=== PATIENT | female | born 1960 | race Caucasian/White ===

== ENCOUNTER → 2017-01-20 | Outpatient (CLI) | payer SELFPAY ==
--- NOTE | 2017-01-20 15:30 | US ---
EXAMINATION TYPE: US thyroid st tissue head/neck DATE OF EXAM: 01/20/2017 COMPARISON: NONE CLINICAL HISTORY: 56-year-old female E04.9 Nontoxic Goiter. TECHNIQUE: Multiple sonographic images of the thyroid gland are obtained. FINDINGS: GLAND SIZE: Right Lobe: 3.4 x 0.9 x 1.5 cm Overall Parenchyma: heterogenous Left Lobe: 3.5 x 1.1 x 0.8 cm Overall Parenchyma: heterogeneous Isthmus Thickness: 0.2 cm NODULES RIGHT: # of nodules measured on right: 1 1. 0.9 X 0.4 x 0.7 cm isoechoic solid nodule at the upper pole with well-defined margins. This nod ule is taller than wide and shows no intranodular vascularity. Prior: 9 x 5 x 9 mm LEFT: # of nodules measured on left: 0 ISTHMUS: # of nodules measured in the isthmus: 0 Bilateral neck scanned, no evidence of lymphadenopathy. IMPRESSION: Stable 9 mm solid right thyroid lobe nodule.
== END | disposition home or self-care (01) ==
LOC: RADUSWWP 12:58
PROVIDERS: ATTEND Family Medicine
DX: E04.1 Nontoxic single thyroid nodule (principal)
CPT/HCPCS: 76536

== ENCOUNTER → 2017-07-30 | Outpatient (CLI) | payer BC ==
--- NOTE | 2017-07-30 16:15 | US ---
EXAMINATION TYPE: US thyroid st tissue head/neck DATE OF EXAM: 07/30/2017 COMPARISON: 01/20/2017 CLINICAL HISTORY: 56-year-old female E04.9 nontoxic goiter, unspec. Technique: Multiple sonographic images of the thyroid gland are obtained. FINDINGS: Right Lobe: 3.5 x 0.9 x 0.9 cm Overall Parenchyma: heterogenous Left Lobe: 3.1 x 0.7 x 1.0 cm Overall Parenchyma: heterogeneous Isthmus Thickness: 0.2 cm NODULES RIGHT: # of nodules measured on right: 1 1. 1.3 X 0.5 x 0.8 cm isoechoic solid nodule at the lower pole with well-defined margins; . This n odule is wider than tall and shows no intranodular vascularity. Prior size: 0.9 x 0.4 x 0.7 cm LEFT: # of nodules measured on left: 0 ISTHMUS: # of nodules measured in the isthmus: 0 Bilateral neck scanned. Lymph node noted right lateral neck measures 2.9 cm long axis. One of the short axis measurement is 7 mm. The cuff folder does not provide a transverse view of this lymph node. IMPRESSION: 1. Heterogeneous thyroid gland could reflect goiter, diffuse thyroiditis, or chronic hypothyroidism. 2. A single solid nodule in the right mid pole measures 1.3 x 0.8 cm versus 0.9 x 0.7 cm, previously. Decision to biopsy can be made on a clinical basis. 3. A prominent lymph node along the right lateral neck is measured at 2.9 cm long axis. The sonograph er does not provide a transverse view of the lymph node. One of the short axis measurement is 7 mm wh ich is normal. This can be followed clinically and if any enlargement is noted, the area can be reima ged.
== END | disposition home or self-care (01) ==
LOC: RADUSWWP 15:25
PROVIDERS: ATTEND Family Medicine
DX: E04.1 Nontoxic single thyroid nodule (principal)
CPT/HCPCS: 76536

== ENCOUNTER → 2017-08-24 | Outpatient (CLI) | payer BC ==
--- NOTE | 2017-08-24 22:44 | BD ---
EXAMINATION TYPE: MG DEXA axial skeleton. DATE OF EXAM: 08/24/2017 COMPARISON: NONE CLINICAL HISTORY: 56-year-old female postmenopausal screening Height: 67.5 IN Weight: 225 LBS FRAX RISK QUESTIONS: Alcohol (3 or more units per day): NO Family History (Parent hip fracture): NO Glucocorticoids (More than 3mos): NO (Ex: prednisone, prednisolone, methylprednisolone, dexamethasone, and hydrocortisone). History of Fracture in Adulthood: NO Secondary Osteoporosis: 1. Type 1 Diabetes: NO 2. Hyperthyroidism: NO 3. Menopause before 45: NO 4. Malnutrition: NO 5. Chronic liver disease: NO Rheumatoid Arthritis: NO Current Tobacco Use: NO RISK FACTORS HISTORY OF: Family History of Osteoporosis: YES MOTHER Active: YES Diet low in dairy products/other sources of calcium: YES Postmenopausal woman: AGE 50 Take estrogen and/or progesterone medications: NOT NOW How long: AGE 52 - 56 Frequent falls: YES CLUMSINESS MEDICATIONS: Thyroid Medications: YES Which medication: Levothyroxine How Lon + YEARS Additional Medications: VIT D, LEVOTHYROXINE, CHOLESTEROL MEDS, COQ10, FISH OIL, EXAM MEASUREMENTS: Bone mineral densitometry was performed using the [employer] System. Bone mineral density as measured about the Lumbar spine is: ----- L1-L4(G/cm2): 1.226 T Score Values are as follows: ----- L2: -0.2 ----- L3: 0.9 ----- L4: 1.5 ----- L1-L4: 0.4 Bone mineral density BASELINE Bone mineral density about the R hip (g/cm2): 0.932 Bone mineral density about the L hip (g/cm2): 0.952 T Score values are as follows: -----R Neck: -0.8 -----L Neck: -0.6 -----R Total: -0.3 -----L Total: -0.3 Bone mineral density BASELINE IMPRESSION: Normal (Values between +1 and -1 indicate normal bone mass). Consider repeating this study in 5 year s or sooner if there is some new clinical indication. NOTE: T-SCORE=SD OF THE YOUNG ADULT MEAN.
--- NOTE | 2017-08-25 13:35 | MM ---
Reason for exam: screening (asymptomatic). Last mammogram was performed 3 years and 2 months ago. History: Patient is postmenopausal. Physical Findings: A clinical breast exam by your physician is recommended on an annual basis and results should be correlated with mammographic findings. MG 3D Screening Mammo W/Cad Bilateral CC and MLO view(s) were taken. Prior study comparison: July 03, 2014, bilateral MG screening mammo w CAD. April 03, 2004, bilateral screening mammogram. The breast tissue is heterogeneously dense. This may lower the sensitivity of mammography. Nodular asymmetry lateral left breast incompletely disperses on 3D images. ASSESSMENT: Incomplete: need additional imaging evaluation, BI-RAD 0 RECOMMENDATION: Special view mammogram of the left breast. If lesion persists on supplemental views, image directed ultrasound is recommended. [facility] will attempt to contact patient to return for supplemental views and ultrasound if indicated.
== END | disposition home or self-care (01) ==
LOC: RADMAMWWP 13:51
PROVIDERS: ATTEND Obstetrics & Gynecology
DX: Z12.31 Encounter for screening mammogram for malignant neoplasm of breast (principal); N95.1 Menopausal and female climacteric states
CPT/HCPCS: 77063; 77067; 77080

== ENCOUNTER → 2017-08-26 | Outpatient (CLI) | payer BC ==
--- NOTE | 2017-08-26 10:22 | MM ---
Reason for exam: additional evaluation requested from abnormal screening. Last mammogram was performed less than 1 month ago. History: Patient is postmenopausal. Physical Findings: Nurse did not find any significant physical abnormalities on exam. MG 3D Work Up W/Cad LT Spot compression CC, spot compression MLO, and ML view(s) were taken of the left breast. Prior study comparison: August 24, 2017, bilateral MG 3d screening mammo w/cad. July 03, 2014, bilateral MG screening mammo w CAD. The breast tissue is heterogeneously dense. This may lower the sensitivity of mammography. No suspicious nodule on compression. These results were verbally communicated with the patient and result sheet given to the patient on 08/26/17. ASSESSMENT: Probably benign, BI-RAD 3 RECOMMENDATION: Follow-up diagnostic mammogram of the left breast in 6 months.
== END | disposition home or self-care (01) ==
LOC: RADMAMWWP 09:32
PROVIDERS: ATTEND Obstetrics & Gynecology
DX: R92.8 Other abnormal and inconclusive findings on diagnostic imaging of breast (principal)
CPT/HCPCS: 77065; G0279

== ENCOUNTER → 2017-08-30 | Outpatient (CLI) | payer BC ==
--- NOTE | 2017-08-30 14:41 | CT ---
EXAMINATION TYPE: CT soft tissue neck w con DATE OF EXAM: 08/30/2017 2:06 PM COMPARISON: Ultrasound 07/30/1999 HISTORY: difficulty swallowing, feels like there is a lump in throat CT DLP: 427.9 mGycm Automated exposure control for dose reduction was used. CONTRAST: CT scan of the neck is performed following with IV Contrast, patient injected with 100 mL of Omnipaqu e 300. Axial images are obtained, coronal and sagittal reformatted images are reviewed. FINDINGS: Airway: No gross abnormality seen. Parotid/submandibular glands: No gross abnormality seen. Carotid/Vascular Structures: Patent, right vertebral artery is dominant, 4 super aortic branch vessel s present. Osseous Structures: Degenerative disc changes are present, there is multilevel foraminal encroachment . Other: Thyroid appears atrophic. Normal appearing lymph nodes present. IMPRESSION: No significant abnormalities evident.
== END | disposition home or self-care (01) ==
LOC: RADCTMAIN 12:55
PROVIDERS: ATTEND Otolaryngology
DX: R22.1 Localized swelling, mass and lump, neck (principal)
CPT/HCPCS: 70491; Q9967

== ENCOUNTER → 2017-10-12 | Outpatient (CLI) | payer BC ==
--- NOTE | 2017-10-12 14:15 | US ---
EXAMINATION TYPE: US thyroid st tissue head/neck DATE OF EXAM: 10/12/2017 COMPARISON: Prior thyroid ultrasound July 30, 2017 CLINICAL HISTORY: E04.1 Nontoxic single thyroid nodule. GLAND SIZE: Right Lobe: 3.3 x 0.9 x 0.8 cm Overall Parenchyma: heterogenous Left Lobe: 2.9 x 0.7 x 0.8 cm Overall Parenchyma: heterogeneous Isthmus Thickness: 0.3 cm NODULES RIGHT: # of nodules measured on right: 1 1. 1.3 X 0.5 x 1.0 cm isoechoic nodule at the lower pole with well-defined margins; . This nodule is wider than tall and shows intranodular vascularity. Prior size: 1.3 x 0.5 x 0.8 cm LEFT: # of nodules measured on left: 0 ISTHMUS: # of nodules measured in the isthmus: 0 Bilateral neck scanned, no evidence of lymphadenopathy. There is stable poorly defined isoechoic right-sided thyroid nodule in small size thyroid. No new nod ules are seen on images saved. IMPRESSION: Overall stable findings. No new suspicious nodules are seen.
== END | disposition home or self-care (01) ==
LOC: RADUSWWP 13:38
PROVIDERS: ATTEND Family Medicine
DX: E04.1 Nontoxic single thyroid nodule (principal)
CPT/HCPCS: 76536

== ENCOUNTER → 2018-11-22 | Outpatient (CLI) | payer BC ==
--- NOTE | 2018-11-22 13:23 | US ---
EXAMINATION TYPE: US thyroid st tissue head/neck DATE OF EXAM: 11/22/2018 COMPARISON: Prior thyroid ultrasound 07/03/2017 CLINICAL HISTORY: E04.1 Thyroid nodule. follow up exam, patient has been on generic synthroid 137mg f or over 20 years GLAND SIZE: Right Lobe: 3.7 x 1.0 x 0.8 cm Overall Parenchyma: heterogenous Left Lobe: 2.8 x 0.6 x 0.6 cm Overall Parenchyma: heterogeneous Isthmus Thickness: 1.4 cm NODULES RIGHT: # of nodules measured on right: 0 LEFT: # of nodules measured on left: 0 ISTHMUS: # of nodules measured in the isthmus: 1 1. 1.2 X 0.5 x 0.9 cm isoechoic solid nodule at the right side of isthmus with poorly defined thomas ns. This nodule is wider than tall and shows intranodular vascularity. Prior size: 1.3 x 0.5 x 1.0 cm Bilateral neck scanned, no evidence of lymphadenopathy. Persistent heterogeneous small size thyroid with stable nodule in the isthmus right of midline. IMPRESSION: As above, no significant interval change from most recent prior ultrasound.
== END | disposition home or self-care (01) ==
LOC: RADUSWWP 12:30
PROVIDERS: ATTEND Internal Medicine
DX: E04.1 Nontoxic single thyroid nodule (principal)
CPT/HCPCS: 76536

== ENCOUNTER → 2019-02-21 | Outpatient (CLI) | payer BC ==
--- NOTE | 2019-02-21 13:43 | CT ---
EXAMINATION TYPE: CT sinus wo con DATE OF EXAM: 02/21/2019 COMPARISON: NONE HISTORY: Sinus drainage, inability to breath through right nostril per patient. Chronic sinusitis per order. CT DLP: 669.3 mGycm. Automated Exposure Control for Dose Reduction was Utilized. TECHNIQUE: CT scan of the sinuses is performed without contrast, axial images are obtained, coronal r eformatted images are also reviewed. FINDINGS: The paranasal sinuses including the frontal, ethmoid, sphenoid, and maxillary sinuses bila terally are well-aerated without suspicious opacification or air-fluid levels. Mild to minimal antral mucosal thickening is present bilaterally. The ostiomeatal complex is patent bilaterally on the lewis nal images. Nasal septum is slightly deviated to right of midline. Visualized portion of mastoid air cells show no abnormal opacification. The globes are intact bilate rally. IMPRESSION: No acute sinusitis. Patent bilateral ostiomeatal complexes.
== END | disposition home or self-care (01) ==
LOC: RADCTMAIN 13:05
PROVIDERS: ATTEND Otolaryngology
DX: J32.9 Chronic sinusitis, unspecified (principal)
CPT/HCPCS: 70486

== ENCOUNTER → 2019-04-19 | Outpatient (CLI) | payer BC ==
--- NOTE | 2019-04-19 10:00 | MM ---
Reason for exam: additional evaluation requested from prior study. Last mammogram was performed 1 year and 8 months ago. History: Patient is postmenopausal. Physical Findings: Nurse did not find any significant physical abnormalities on exam. MG 3D Diag Mammo W/Cad NATHALIE Bilateral CC and MLO view(s) were taken. Prior study comparison: August 26, 2017, left breast MG 3d work up w/cad LT. August 24, 2017, bilateral MG 3d screening mammo w/cad. The breast tissue is heterogeneously dense. This may lower the sensitivity of mammography. Benign appearing bilateral calcifications. No suspicious abnormality. No significant new findings when compared with previous films. These results were verbally communicated with the patient and result sheet given to the patient on 04/19/19. ASSESSMENT: Benign, BI-RAD 2 RECOMMENDATION: Routine screening mammogram of both breasts in 1 year.
== END | disposition home or self-care (01) ==
LOC: RADMAMWWP 06:50
PROVIDERS: ATTEND Obstetrics & Gynecology
DX: R92.8 Other abnormal and inconclusive findings on diagnostic imaging of breast (principal)
CPT/HCPCS: 77062; 77066

== ENCOUNTER → 2019-12-27 | Outpatient (CLI) | payer BC ==
--- NOTE | 2019-12-27 13:46 | US ---
EXAMINATION TYPE: US thyroid st tissue head/neck DATE OF EXAM: 12/27/2019 COMPARISON: NONE CLINICAL HISTORY: E04.1 Thyroid nodule. Thyroid nodule GLAND SIZE: Right Lobe: 2.7 x .8 x 1.0 cm Overall Parenchyma: homogenous Left Lobe: 2.9 x .5 x .9 cm Overall Parenchyma: homogeneous Isthmus Thickness: .3 cm NODULES RIGHT: # of nodules measured on right: 0 LEFT: # of nodules measured on left: 0 ISTHMUS: # of nodules measured in the isthmus: 1 1. .8 X .3 x .7 cm isoechoic solid nodule at the mid pole with poorly defined margins; . This nod ule is wider than tall and shows intranodular vascularity. Prior size: 1.3 x .5 x 1.0 cm Bilateral neck scanned, no evidence of lymphadenopathy. IMPRESSION: Improved thyroid nodularity about the region of the isthmus. Diminutive thyroid lobes.
== END | disposition home or self-care (01) ==
LOC: RADUSWWP 12:53
PROVIDERS: ATTEND Internal Medicine
DX: E04.1 Nontoxic single thyroid nodule (principal); E06.3 Autoimmune thyroiditis
CPT/HCPCS: 76536

== ENCOUNTER → 2020-04-18 | Outpatient (CLI) | payer BC ==
--- NOTE | 2020-04-18 16:50 | CONS ---
CONSULTATION DATE OF SERVICE: 04/18/2020 This patient is a 59-year-old lady who has [facility] for insomnia and possible obstructive sleep apnea-hypopnea syndrome. HISTORY OF PRESENT ILLNESS/SLEEP-WAKE EVALUATION: Patient's usual sleep schedule is from between 11 p.m. and 4 a.m. until between 7 and 10 a.m. She does have problems with falling asleep. She has a TV set in the bedroom. She sleeps on the stomach position. During sleep she moves, and when she is on her back she snores and wakes up from sleep several times, with up to two episodes of nocturia. Sometimes she has restless movements during sleep, but this is not every night. In the morning the patient wakes up tired, worries about her sleep, has episodes of anxiety. [place] Sleepiness Scale is 5. PAST MEDICAL HISTORY: Positive for allergies, hypothyroidism, episodes of muscle cramps also during the night, acid reflux, sinus problems. MEDICATIONS: Levothyroxine 137 mcg once a day. SOCIAL HISTORY: Negative for smoking. Alcohol consumption occasional. FAMILY HISTORY: Stroke, diabetes, mental illness. REVIEW OF SYSTEMS: Awakenings from sleep, tiredness and sleepiness during the day, difficulties initiating sleep. PHYSICAL EXAMINATION: GENERAL: A pleasant lady without distress. VITAL SIGNS: BP 158/87, HR 92, RR 15, height 5 feet 7-1/2 inches, weight 234.8 pounds, BMI 36.1, temperature 98.3, oxygen saturation at room air 97%. HEENT: PERRLA, EOMI. Evaluation of oropharynx showed tongue protrudes midline. Low position of soft palate. Mallampati III to IV. NECK: Supple. No JVD. Thyroid is not palpable. Neck measures 16 inches in circumference. LUNGS: Clear to percussion and to auscultation. Good air exchange. No wheezing or rhonchi. HEART: S1, S2 regular. No murmurs, gallops or rubs. ABDOMEN: Obese. EXTREMITIES: No clubbing or cyanosis. DIGITAL PUBLISHING SPECIALIST: Awake, alert, and oriented X3. Cranial nerves 2 to 7 intact. There is no fasciculation or atrophy. noted. No focal deficits observed. IMPRESSION: 1. Snoring, awakenings from sleep with nocturia, small oropharyngeal air space, wide neck for female at 16 inches; obstructive sleep apnea-hypopnea syndrome. 2. Increased blood pressure in the office today. 3. Hypothyroidism. 4. Allergies. 5. Sinus problems. 6. History of acid reflux. 7. Episodes of muscle cramps at night. 8. Episodes of restless leg symptoms. 9. History of sinus problems. 10.Psychophysiological insomnia. 11.Menopause. PLAN: 1. Home sleep apnea test for evaluation of patient's breathing during sleep. 2. I discussed with the patient stimulus control and paradoxical intention for treatment of psychophysiological insomnia. 3. Losing weight. 4. Sleep hygiene with regular time in bed for at least 7-1/2 to 8 hours. 5. No driving if feeling any sleepiness. 6. Following plan after reviewing results of home sleep apnea test. Thank you very much for referring this patient for consultation. Sincerely, Jacob Paniagua MD, PhD, FAASM Diplomat of [place] [employer] [place] [employer] Professor Of Public Administration of [facility] [place] MMODL / IJN: [id number] /
== END | disposition home or self-care (01) ==
LOC: SLEEP 14:49
PROVIDERS: ATTEND Internal Medicine
DX: G47.33 Obstructive sleep apnea (adult) (pediatric) (principal); E03.9 Hypothyroidism, unspecified; R03.0 Elevated blood-pressure reading, without diagnosis of hypertension; J34.9 Unspecified disorder of nose and nasal sinuses; R25.2 Cramp and spasm; G25.81 Restless legs syndrome; F51.04 Psychophysiologic insomnia; Z78.0 Asymptomatic menopausal state; Z79.891 Long term (current) use of opiate analgesic; Z87.19 Personal history of other diseases of the digestive system
CPT/HCPCS: 99211

== ENCOUNTER → 2020-08-29 | Outpatient (CLI) | payer BC ==
--- NOTE | 2020-09-02 11:41 | MM ---
Reason for exam: screening (asymptomatic). Last mammogram was performed 1 year and 4 months ago. History: Patient is postmenopausal. Physical Findings: A clinical breast exam by your physician is recommended on an annual basis and results should be correlated with mammographic findings. MG 3D Screening Mammo W/Cad Bilateral CC and MLO view(s) were taken. Prior study comparison: April 19, 2019, bilateral MG 3d diag mammo w/cad NATHALIE. August 26, 2017, left breast MG 3d work up w/cad LT. The breast tissue is heterogeneously dense. This may lower the sensitivity of mammography. There are benign appearing round calcifications bilaterally. There is no discrete abnormality. ASSESSMENT: Benign, BI-RAD 2 RECOMMENDATION: Routine screening mammogram of both breasts in 1 year.
== END | disposition home or self-care (01) ==
LOC: RADMAMWWP 14:41
PROVIDERS: ATTEND Obstetrics & Gynecology
DX: Z12.31 Encounter for screening mammogram for malignant neoplasm of breast (principal)
CPT/HCPCS: 77063; 77067

== ENCOUNTER 2020-10-28 05:08 | Inpatient (IN) | payer BC ==
[2020-10-28] MEDS ORDERED: NITROGLYCERIN SL TABS 0.4 MG TAB SUBLINGUAL STA (05:23)
[2020-10-28] MEDS ORDERED: ONDANSETRON 4 MG/2 ML VIAL IVP STA (05:23)
[2020-10-28] MEDS ORDERED: MORPHINE SULFATE 4 MG/ML SYRINGE IV STA (05:23)
--- NOTE | 2020-10-28 05:34 | ED ---
Chest Pain HPI - General Chief Complaint: Chest Pain Stated Complaint: Chest Pain Time Seen by Provider: 10/28/20 05:14 Source: EMS Mode of arrival: EMS - History of Present Illness Initial Comments: Patient's 60-year-old woman who woke this morning with epigastric and substernal chest pain. When the pain did not resolve they called EMS who administered aspirin and nitroglycerin and the pain has resolved now. MD Complaint: chest pain -: hour(s) Onset: during rest Pain Location: epigastric Pain Radiation: none Quality: tightness Consistency: constant Improves With: nitroglycerin Worsens With: nothing Anginal Symptoms: nausea Treatments Prior to Arrival: none - Related Data Home Medications Medication Instructions Recorded Confirmed Cetirizine HCl [Zyrtec] 10 mg PO DAILY 10/28/20 10/28/20 Cholecalciferol (Vitamin D3) 75 mcg PO DAILY 10/28/20 10/28/20 [Vitamin D3 (3000 Iu)] Levothyroxine Sodium [Synthroid] 137 mcg PO DAILY 10/28/20 10/28/20 Melatonin 5 mg PO HS 10/28/20 10/28/20 Previous Rx's Medication Instructions Recorded Docusate [Colace] 100 mg PO BID #30 capsule 10/31/20 HYDROcodone/APAP 5-325MG [[place] 1 tab PO Q6HR PRN 3 Days #12 tab 10/31/20 5-325] Prochlorperazine [Compazine] 5 mg PO Q8HR PRN #14 tab 10/31/20 Allergies Allergy/AdvReac Type Severity Reaction Status Date / Time Penicillins Allergy Anaphylaxis Verified 10/28/20 07:03 Review of Systems ROS Statement: Those systems with pertinent positive or pertinent negative responses have been documented in the HPI. ROS Other: All systems not noted in ROS Statement are negative. Constitutional: Denies: fever, chills Respiratory: Denies: cough, dyspnea Cardiovascular: Reports: chest pain. Denies: palpitations Gastrointestinal: Denies: abdominal pain, nausea, vomiting Musculoskeletal: Denies: back pain Skin: Denies: rash Neurological: Denies: headache, weakness, numbness EKG Findings - EKG Results: EKG: interpreted by ERMD, sinus rhythm (Rate 62 bpm), normal axis, normal QRS, normal ST/T Past Medical History Past Medical History: Thyroid Disorder History of Any Multi-Drug Resistant Organisms: None Reported Past Surgical History: No Surgical Hx Reported Past Psychological History: Anxiety Smoking Status: Never smoker Past Alcohol Use History: None Reported Past Drug Use History: None Reported - Past Family History Father Family Medical History: Dementia, Diabetes Mellitus, Renal Disease Additional Family Medical History / Comment(s): Father is . He was on dialysis briefly. Mother Family Medical History: Congestive Heart Failure (CHF) Additional Family Medical History / Comment(s): Mother of CHF General Exam General appearance: alert, in no apparent distress Head exam: Present: atraumatic, normocephalic Eye exam: Present: normal appearance. Absent: scleral icterus, conjunctival injection ENT exam: Present: normal oropharynx Respiratory exam: Present: normal lung sounds bilaterally. Absent: respiratory distress, wheezes, rales, rhonchi, stridor Cardiovascular Exam: Present: regular rate, normal rhythm, normal heart sounds. Absent: systolic murmur, diastolic murmur, rubs, gallop GI/Abdominal exam: Present: soft, tenderness (Right upper quadrant), normal bowel sounds. Absent: distended, guarding, rebound, rigid, mass, pulsatile mass, hernia Extremities exam: Present: normal inspection, normal capillary refill. Absent: pedal edema, calf tenderness Back exam: Present: normal inspection. Absent: CVA tenderness (R), CVA tenderness (L) Neurological exam: Present: alert Skin exam: Present: warm, dry, intact, normal color. Absent: rash Course Vital Signs 10/28/20 10/28/20 10/28/20 05:10 06:47 08:19 Temperature 98.4 F Pulse Rate 67 63 58 L Respiratory 20 18 20 Rate Blood Pressure 176/90 137/71 165/85 O2 Sat by Pulse 99 97 98 Oximetry 10/28/20 10:27 Temperature Pulse Rate 76 Respiratory 20 Rate Blood Pressure 139/85 O2 Sat by Pulse 98 Oximetry Chest Pain MDM - MDM This patient is 60-year-old woman who presents with epigastric and substernal chest pain. There is some right upper quadrant tenderness, but the workup at this point is not revealing definite etiology. Will admit patient to have serial cardiac enzymes and telemetry monitoring as well as HIDA scan. Disposition Clinical Impression: Chest pain, Elevated transaminase level Disposition: ADMITTED IP TO THIS HOSP Condition: Good
--- NOTE | 2020-10-28 05:39 | XR ---
EXAMINATION TYPE: XR chest 1V portable DATE OF EXAM: 10/28/2020 COMPARISON: NONE HISTORY: Severe chest pain. TECHNIQUE: Single AP portable frontal supine view of the chest is obtained. FINDINGS: Somewhat low lung volumes. There is no focal air space opacity, pleural effusion, or pneumo thorax seen. The cardiac silhouette size is mildly enlarged. Overlying EKG leads. The osseous struc tures are intact. IMPRESSION: Mild cardiomegaly without acute pulmonary process.
[2020-10-28 05:48] LABS: Basophils % (A) 0 %; Eosinophils # (A) 0.1 k/uL (0-0.7); Eosinophils % (A) 2 %; HCT 41.4 % (34.0-46.0); HGB 13.7 gm/dL (11.4-16.0); Lymphocytes # (A) 1.6 k/uL (1.0-4.8); Lymphocytes % (A) 28 %; MCH 28.3 pg (25.0-35.0); MCV 85.8 fL (80.0-100.0); Mean Platelet Volume 8.2; Monocytes # (A) 0.3 k/uL (0-1.0); Monocytes % (A) 5 %; Neutrophils # (A) 3.5 k/uL (1.3-7.7); Neutrophils % (A) 62 %; Platelet Count 188 k/uL (150-450); RBC 4.82 m/uL (3.80-5.40); RDW 13.3 % (11.5-15.5); WBC 5.7 k/uL (3.8-10.6)
[2020-10-28 06:12] LABS: D-Dimer 0.45 mg/L FEU (<0.60); INR 0.9 (<1.2); Prothrombin Time 9.6 sec (9.0-12.0)
[2020-10-28 06:15] LABS: Albumin 4.2 g/dL (3.5-5.0); Calcium 9.5 mg/dL (8.4-10.2); Potassium 4.1 mmol/L (3.5-5.1); Total Bilirubin 0.8 mg/dL (0.2-1.3); Total Protein 6.7 g/dL (6.3-8.2)
[2020-10-28 06:44] LABS: Partial Thromboplastin Time 18.5 sec (22.0-30.0)
--- NOTE | 2020-10-28 08:04 | US ---
EXAMINATION TYPE: US abdomen limited DATE OF EXAM: 10/28/2020 COMPARISON: Ultrasound abdomen September 28, 2010 CLINICAL HISTORY: attention RUQ. EXAM MEASUREMENTS: Liver Length: 13.1 cm Gallbladder Wall: 0.2 cm CBD: 0.4 cm Right Kidney: 10.5 x 4.7 x 4.4 cm Pancreas: Tail obscured by overlying bowel gas, otherwise appears wnl Liver: Increased attenuation Gallbladder: debris, probable stones Evidence for sonographic Stokes's sign: no CBD: wnl Right Kidney: wnl No mobile shadowing intraluminal gallstones. Possible small stones and/or gallbladder sludge. No abno rmal wall thickening or surrounding fluid. IMPRESSION: No ultrasound evidence for acute cholecystitis.
[2020-10-28] MEDS ORDERED: SODIUM CHLORIDE 0.9% 1,000 ML IV SCH (08:15)
[2020-10-28] MEDS: CHOLECALCIFEROL 25 MCG (1000 IU) TABLET PO SCH (09:20)
[2020-10-28] MEDS ORDERED: ENOXAPARIN 40 MG/0.4 ML SYRINGE SQ SCH (12:00)
[2020-10-28] MEDS ORDERED: ENOXAPARIN 100 MG/ML SYRINGE SQ STA (13:14)
[2020-10-28] MEDS ORDERED: SODIUM CHLORIDE 0.9% 1,000 ML IV STA (13:15)
--- NOTE | 2020-10-28 14:00 | P.HPIM ---
History of Present Illness H&P Date: 10/28/20 Chief Complaint: Chest tightness History of presenting complaint: This is a pleasant 60-year-old patient of Dr. Gordon. Chronic stable medical conditions include hypothyroid, insomnia, ALLERGIES. Patient woke up around 4:00 this morning perspiring quite a bit short of breath and tightness around the rib cage. She also painful in the central chest. No fever no chills. No cough. Patient had significant nausea vomiting. Feeling slightly better when I saw the patient this morning. No abdominal pain per se. No diarrhea. Symptoms lasted for less than couple of hours. Central chest pain with no radiation. Review of systems: GEN.: Tired EYES: None HEENT: None NECK: None RESPIRATORY: [As above CARDIOVASCULAR: As above GASTROINTESTINAL: As above GENITOURINARY: None MUSCULOSKELETAL: None LYMPHATICS: None HEMATOLOGICAL: None PSYCHIATRY: None NEUROLOGICAL: None Past medical history to include: Hypothyroid, gastric ulcer, irritable bowel syndrome, chronic low back pain/DJD, vitamin D deficiency, ALLERGIES Social history: . Does not smoke. Alcohol rarely. Physical examination: VITAL SIGNS: 98.4, 67, 20, 176.90, 99% room air GENERAL: BMI 31.9, sitting up in bed, bit tired. EYES: Pupils equal. Conjunctiva normal. HEENT: External appearance of nose and ears normal, oral cavity grossly normal. NECK: JVD not raised; masses not palpable. HEART: First and second heart sounds are normal; no edema. LUNGS: Respiratory rate normal; clear to auscultation. ABDOMEN: Soft, nontender, liver spleen not palpable, no masses palpable. PSYCH: Alert and oriented x3; mood and affect normal. NEUROLOGICAL: Cranial nerves grossly intact; no facial asymmetry, power and sensation grossly intact. LYMPHATICS: No lymph nodes palpable in the axilla and neck INVESTIGATIONS, reviewed in the clinical context: WBC 5.7 hemoglobin 13.7 platelets 188 d-dimer 0.45 potassium 4.1 bun 28 creatinine 0.86 AST 177 ALT 88 Troponin I 3 negative Amylase 59 and lipase 132 Coronavirus [PCL]-not detected EKG tracing personally reviewed by me-normal sinus rhythm Chest x-ray film personally reviewed by me-lung mari clear Abdominal ultrasound: Gallbladder: Debris and probable stones Assessment and plan: -This is a patient presents with episodes of significant shortness of breath perspiration tightness around the rib cage. A complete by nausea vomiting. Unstable angina in the differential. Some of the symptoms could be explained by gallstone but would not explain shortness of breath and chest tightness. -Choledocholithiasis -Hypothyroid Continue Synthroid -Chronic idiopathic insomnia Continue melatonin -Vitamin D deficiency Continue with vitamin D3 We'll check acute hepatitis panel. 2-D echocardiogram. Telemetry. Cardiology and surgery consultation. Care was discussed with the patient. Questions answered. Past Medical History Past Medical History: Thyroid Disorder History of Any Multi-Drug Resistant Organisms: None Reported Past Surgical History: No Surgical Hx Reported Past Psychological History: Anxiety Smoking Status: Never smoker Past Alcohol Use History: None Reported Past Drug Use History: None Reported - Past Family History Father Family Medical History: Dementia, Diabetes Mellitus, Renal Disease Additional Family Medical History / Comment(s): Father is . He was on dialysis briefly. Mother Family Medical History: Congestive Heart Failure (CHF) Additional Family Medical History / Comment(s): Mother of CHF Medications and Allergies Home Medications Medication Instructions Recorded Confirmed Type Cetirizine HCl [Zyrtec] 10 mg PO DAILY 10/28/20 10/28/20 History Cholecalciferol (Vitamin D3) 75 mcg PO DAILY 10/28/20 10/28/20 History [Vitamin D3 (3000 Iu)] Levothyroxine Sodium [Synthroid] 137 mcg PO DAILY 10/28/20 10/28/20 History Melatonin 5 mg PO HS 10/28/20 10/28/20 History Allergies Allergy/AdvReac Type Severity Reaction Status Date / Time Penicillins Allergy Anaphylaxis Verified 10/28/20 07:03 Physical Exam Vitals: Vital Signs Temp Pulse Resp BP Pulse Ox 10/28/20 08:19 58 L 20 165/85 98 10/28/20 06:47 63 18 137/71 97 10/28/20 05:10 98.4 F 67 20 176/90 99 Intake and Output 10/27/20 10/28/20 10/28/20 22:59 06:59 14:59 Other: Weight 95.254 kg Results CBC & Chem 7: 10/28/20 05:38 10/28/20 05:38 Labs: Abnormal Lab Results - Last 24 Hours (Table) 10/28/20 10/28/20 Range/Units 05:38 05:38 APTT 18.5 L (22.0-30.0) sec BUN 28 H (7-17) mg/dL Glucose 108 H (74-99) mg/dL AST 177 H (14-36) U/L ALT 88 H (4-34) U/L
--- NOTE | 2020-10-28 14:36 | P.CRDCN ---
History of Present Illness History of present illness: HISTORY OF PRESENTING ILLNESS This is a pleasant 60-year-old female past medical history significant for hypertension, dyslipidemia, hypothyroidism. She used to follow up in the office with Dr. Alexis, lasting seen in December 2017. We have been asked to see in consultation for chest pain. Patient is seen and examined at bedside, no acute distress. She presents to the hospital with complaints of chest pain. She states she had an episode of tightness that was across her ribs. She had associated shortness of breath. her symptoms lasted a couple hours and then resolved. This is non-exertional. Nonradiating. She had some nausea. She denies history of diabetes, OR, or stroke. She denies tobacco use. Denies alcohol use.Denies family history of cardiac disease. Current home medications include Zytrec 10mg daily, melatonin 5mg nightly, Synthroid, vitamin D3. She had a exercise stress test in 2011 which revealed normal ejection fraction, no reversible defect, septal anterior wall fixed defects just the soft tissue attenuation. Echocardiogram in 2016 revealed normal EF 55%. When patient was last seen in 12/2017 was recommended to get a stress echo in 2-3 weeks the patient did not fo llow up in the office to get this completed. DIAGNOSTICS EKG reveals sinus rhythm, heart rate 62, no significant STT wave abnormalities. Chest xray heart size is mildly enlarged. No acute pulmonary process. Abdominal ultrasound revealed possible small stones and/or gallbladder sludge. No acute cholecystitis. Laboratory reviewed, CBC unremarkable, d-dimer negative, sodium 141, potassium 4.1, creatinine 0.86, troponin negative 3, AST 177, ALT 88, amylase and lipase within normal limits, COVID-19 negative REVIEW OF SYSTEMS At the time of my exam: CONSTITUTIONAL: Denies fever or chills. CARDIOVASCULAR: Positive chest tightness, positive shortness of breath, denies orthopnea, PND or palpitations. RESPIRATORY: Denies cough. GASTROINTESTINAL: Positive nausea Denies abdominal pain, diarrhea, constipation MUSCULOSKELETAL: Denies myalgias. NEUROLOGIC: Denies numbness, tingling, headacbe or weakness. ENDOCRINE: Denies fatigue, weight change, polydipsia or polyurina. GENITOURINARY: Denies burning, hematuria or urgency with micturation. HEMATOLOGIC: Denies history of anemia or bleeding. PHYSICAL EXAMINATION Blood pressure 139/85 heart rate 76 afebrile and maintaining oxygen saturation 90% on room air CONSTITUTIONAL: No apparent distress. HEENT: Head is normocephalic. Pupils are equal, round. Sclerae anicteric. Mucous membranes of the mouth are moist. No JVD. No carotid bruit. CHEST EXAMINATION: Lungs are clear to auscultation. No chest wall tenderness is noted on palpation or with deep breathing. HEART EXAMINATION: Regular rate and rhythm. S1, S2 heard. No murmurs, gallops or rub. ABDOMEN: Soft, nontender. Positive bowel sounds. EXTREMITIES: 2+ peripheral pulses, no lower extremity edema and no calf tenderness. NEUROLOGIC EXAMINATION: Patient is awake, alert and oriented x3. ASSESSMENT Chest pain, atypical. acute coronary syndrome has been ruled out. History of hypertension Dyslipidemia Hypothyroidism PLAN We will obtain Stress echo tomorrow morning NPO at midnight Give 1 dose of Lovenox 90mg Continue IV fluids Further recommendations based on clinical course. Nurse Practitioner note has been reviewed, I agree with a documented findings and plan of care. Patient was seen and examined. Past Medical History Past Medical History: Thyroid Disorder Additional Past Medical History / Comment(s): Gastric ulcer years ago, IBS years ago, chronic low back pain/DDD, vitamin D deficiency, bronchitis in past, UTI, sinus allergies, hypothyroid. History of Any Multi-Drug Resistant Organisms: None Reported Past Surgical History: Adenoidectomy, Tonsillectomy, Uterine Ablation Additional Past Surgical History / Comment(s): Laparoscopy for ovarian cystectomy, D&C hysteroscopy/ablation, colonoscopy, bilateral cataract rem oval/lens implants. Past Anesthesia/Blood Transfusion Reactions: Postoperative Nausea & Vomiting (PONV) Smoking Status: Never smoker - Past Family History Father Family Medical History: Dementia, Diabetes Mellitus, Renal Disease Additional Family Medical History / Comment(s): Father is . He was on dialysis briefly. Mother Family Medical History: Congestive Heart Failure (CHF) Additional Family Medical History / Comment(s): Mother of CHF Medications and Allergies Home Medications Medication Instructions Recorded Confirmed Type Cetirizine HCl [Zyrtec] 10 mg PO DAILY 10/28/20 10/28/20 History Cholecalciferol (Vitamin D3) 75 mcg PO DAILY 10/28/20 10/28/20 History [Vitamin D3 (3000 Iu)] Levothyroxine Sodium [Synthroid] 137 mcg PO DAILY 10/28/20 10/28/20 History Melatonin 5 mg PO HS 10/28/20 10/28/20 History Allergies Allergy/AdvReac Type Severity Reaction Status Date / Time Penicillins Allergy Anaphylaxis Verified 10/28/20 07:03 Physical Exam Vitals: Vital Signs Temp Pulse Pulse Resp BP BP Pulse Ox 10/28/20 12:20 98.0 F 67 16 176/88 100 10/28/20 10:27 76 20 139/85 98 10/28/20 08:19 58 L 20 165/85 98 10/28/20 06:47 63 18 137/71 97 10/28/20 05:10 98.4 F 67 20 176/90 99 Intake and Output 10/27/20 10/28/20 10/28/20 22:59 06:59 14:59 Other: Weight 95.254 kg 95.254 kg Results 10/28/20 05:38 10/28/20 05:38 Cardiac Enzymes 10/28/20 10/28/20 10/28/20 Range/Units 05:38 05:38 08:35 AST 177 H (14-36) U/L Troponin I <0.012 <0.012 (0.000-0.034) ng/mL 10/28/20 Range/Units 11:26 AST (14-36) U/L Troponin I <0.012 (0.000-0.034) ng/mL Coagulation 10/28/20 Range/Units 05:38 PT 9.6 (9.0-12.0) sec APTT 18.5 L (22.0-30.0) sec CBC 10/28/20 Range/Units 05:38 WBC 5.7 (3.8-10.6) k/uL RBC 4.82 (3.80-5.40) m/uL Hgb 13.7 (11.4-16.0) gm/dL Hct 41.4 (34.0-46.0) % Plt Count 188 (150-450) k/uL Comprehensive Metabolic Panel 10/28/20 Range/Units 05:38 Sodium 141 (137-145) mmol/L Potassium 4.1 (3.5-5.1) mmol/L Chloride 106 (98-107) mmol/L Carbon Dioxide 28 (22-30) mmol/L BUN 28 H (7-17) mg/dL Creatinine 0.86 (0.52-1.04) mg/dL Glucose 108 H (74-99) mg/dL Calcium 9.5 (8.4-10.2) mg/dL AST 177 H (14-36) U/L ALT 88 H (4-34) U/L Alkaline Phosphatase 86 (38-126) U/L Total Protein 6.7 (6.3-8.2) g/dL Albumin 4.2 (3.5-5.0) g/dL Current Medications Generic Name Dose Route Start Last Admin Trade Name Freq PRN Reason Stop Dose Admin Cholecalciferol 75 mcg 10/28/20 09:00 10/28/20 09:20 Cholecalciferol 25 Mcg (1000 Iu) Tablet PO 75 mcg DAILY TAYLOR Administration Enoxaparin Sodium 40 mg 10/28/20 12:00 Enoxaparin 40 Mg/0.4 Ml Syringe SQ DAILY TAYLOR Sodium Chloride 1,000 mls @ 130 mls/hr 10/28/20 08:15 10/28/20 08:18 Saline 0.9% IV 130 mls/hr .[id number] TAYLOR Administration Levothyroxine Sodium 137 mcg 10/29/20 06:30 Levothyroxine 137 Mcg [place] 0630 TAYLOR Melatonin 5 mg 10/28/20 21:00 Melatonin 5 Mg Tablet PO HS TAYLOR Morphine Sulfate 4 mg 10/28/20 08:12 Morphine Sulfate 4 Mg/Ml Syringe IV Q3H PRN Chest Pain Intake and Output 10/27/20 10/28/20 10/28/20 22:59 06:59 14:59 Other: Weight 95.254 kg 95.254 kg Patient Weight 10/29/20 06:59 Weight 95.254 kg 10/28/20 05:38 10/28/20 05:38
--- NOTE | 2020-10-28 15:22 | P.GSCN ---
History of Present Illness Consult date: 10/28/20 History of present illness: CHIEF COMPLAINT: Chest pain HISTORY OF PRESENT ILLNESS: This is a 60-year-old female with a known history of peptic ulcer disease several years ago, hypothyroidism and GERD. Patient reports that she woke up around 4 AM this morning with pain that wrapped around her chest that was squeezing in nature. She had shortness of breath. Also she had extreme nausea and vomiting and eventually dry heaves. The pain did not radiate. She denies any right upper quadrant or epigastric pain. The pain was severe enough that she called EMS. She was given aspirin and nitro with some improvement in her symptoms. She also has required IV morphine. She had abdominal ultrasound completed showing no acute cholecystitis but but did show possible stones and/or gallbladder sludge. She had mildly elevated LFTs. At this time she is complaining of still some mild rib pain bilaterally. She has been seen by cardiology they are ordering a stress echo to be completed for tomorrow. She denies any fever chills or sweats. She did have a small episode of diarrhea. Denies any urinary symptoms. Past surgical history included a uterine ablation and ovarian cyst removal. PAST MEDICAL HISTORY: See list. PAST SURGICAL HISTORY: See list. MEDICATIONS: See list. ALLERGIES: See list. SOCIAL HISTORY: No illicit drug use. REVIEW OF SYSTEMS: CONSTITUTIONAL: Denies fever or chills. HEENT: Denies blurred vision, vision changes, or eye pain. Denies hemoptysis CARDIOVASCULAR: Denies chest pain or pressure. RESPIRATORY: No shortness of breath. GASTROINTESTINAL: See HPI for pertinent findings HEMATOLOGIC: Denies bleeding disorders. GENITOURINARY: Denies any blood in urine or increased urinary frequency. SKIN: Denies pruitis. Denies rash. PHYSICAL EXAM: VITAL SIGNS: Reviewed GENERAL: Well-developed in no acute distress. HEENT: No sclera icterus. Extraocular movements grossly intact. Moist buccal mucosa. Head is atraumatic, normocephalic. No nasal drainage. Chest: Patient does have tenderness with palpation of bilateral ribs. No evidence of skin rash or lesions ABDOMEN: Soft. Nondistended. Nondistended NEUROLOGIC: Alert and oriented. Cranial nerves II through XII grossly intact. LABORATORY DATA: WBC 5.7 hemoglobin 13.7 platelets 188 AST 177 ALT 88 Troponins negative 3 Lipase normal IMAGING: No ultrasound evidence for acute cholecystitis. With possible small stones and/or gallbladder sludge noted ASSESSMENT: 1. Nausea vomiting with squeezing chest pain and with abdominal ultrasound showing possible small stones and/or gallbladder sludge. 2. Elevated LFTs PLAN: -Cardiology has patient scheduled for stress echo to be completed tomorrow morning. They are giving 1 dose of Lovenox 90 mg subcu for possible unstable angina -Patient is scheduled for laparoscopic cholecystectomy tomorrow, 10/29/[address] Mustafa -Keep patient nothing by mouth after midnight -Okay for low-fat diet today -Repeat labs in a.m. Thank you for this consultation Physician Materials Handling Coordinator note has been reviewed by physician. Signing provider agrees with the documented findings, assessment, and plan of care. Past Medical History Past Medical History: Thyroid Disorder Additional Past Medical History / Comment(s): Gastric ulcer years ago, IBS years ago, chronic low back pain/DDD, vitamin D deficiency, bronchitis in past, UTI, sinus allergies, hypothyroid. History of Any Multi-Drug Resistant Organisms: None Reported Past Surgical History: Adenoidectomy, Tonsillectomy, Uterine Ablation Additional Past Surgical History / Comment(s): Laparoscopy for ovarian cystectomy, D&C hysteroscopy/ablation, colonoscopy, bilateral cataract removal/lens implants. Past Anesthesia/Blood Transfusion Reactions: Postoperative Nausea & Vomiting (PONV) Smoking Status: Never smoker - Past Family History Father Family Medical History: Dementia, Diabetes Mellitus, Renal Disease Additional Family Medical History / Comment(s): Father is . He was on dialysis briefly. Mother Family Medical History: Congestive Heart Failure (CHF) Additional Family Medical History / Comment(s): Mother of CHF Medications and Allergies Home Medications Medication Instructions Recorded Confirmed Type Cetirizine HCl [Zyrtec] 10 mg PO DAILY 10/28/20 10/28/20 History Cholecalciferol (Vitamin D3) 75 mcg PO DAILY 10/28/20 10/28/20 History [Vitamin D3 (3000 Iu)] Levothyroxine Sodium [Synthroid] 137 mcg PO DAILY 10/28/20 10/28/20 History Melatonin 5 mg PO HS 10/28/20 10/28/20 History Allergies Allergy/AdvReac Type Severity Reaction Status Date / Time Penicillins Allergy Anaphylaxis Verified 10/28/20 07:03 Surgical - Exam Vital Signs Temp Pulse Resp BP Pulse Ox 98.4 F 67 20 176/90 99 10/28/20 05:10 10/28/20 05:10 10/28/20 05:10 10/28/20 05:10 10/28/20 05:10 Results - Labs 10/28/20 05:38 10/28/20 05:38 Abnormal Lab Results - Last 24 Hours (Table) 10/28/20 10/28/20 Range/Units 05:38 05:38 APTT 18.5 L (22.0-30.0) sec BUN 28 H (7-17) mg/dL Glucose 108 H (74-99) mg/dL AST 177 H (14-36) U/L ALT 88 H (4-34) U/L Diabetes panel 10/28/20 Range/Units 05:38 Sodium 141 (137-145) mmol/L Potassium 4.1 (3.5-5.1) mmol/L Chloride 106 (98-107) mmol/L Carbon Dioxide 28 (22-30) mmol/L BUN 28 H (7-17) mg/dL Creatinine 0.86 (0.52-1.04) mg/dL Glucose 108 H (74-99) mg/dL Calcium 9.5 (8.4-10.2) mg/dL AST 177 H (14-36) U/L ALT 88 H (4-34) U/L Alkaline Phosphatase 86 (38-126) U/L Total Protein 6.7 (6.3-8.2) g/dL Albumin 4.2 (3.5-5.0) g/dL Calcium panel 10/28/20 Range/Units 05:38 Calcium 9.5 (8.4-10.2) mg/dL Albumin 4.2 (3.5-5.0) g/dL Pituitary panel 10/28/20 Range/Units 05:38 Sodium 141 (137-145) mmol/L Potassium 4.1 (3.5-5.1) mmol/L Chloride 106 (98-107) mmol/L Carbon Dioxide 28 (22-30) mmol/L BUN 28 H (7-17) mg/dL Creatinine 0.86 (0.52-1.04) mg/dL Glucose 108 H (74-99) mg/dL Calcium 9.5 (8.4-10.2) mg/dL Adrenal panel 10/28/20 Range/Units 05:38 Sodium 141 (137-145) mmol/L Potassium 4.1 (3.5-5.1) mmol/L Chloride 106 (98-107) mmol/L Carbon Dioxide 28 (22-30) mmol/L BUN 28 H (7-17) mg/dL Creatinine 0.86 (0.52-1.04) mg/dL Glucose 108 H (74-99) mg/dL Calcium 9.5 (8.4-10.2) mg/dL Total Bilirubin 0.8 (0.2-1.3) mg/dL AST 177 H (14-36) U/L ALT 88 H (4-34) U/L Alkaline Phosphatase 86 (38-126) U/L Total Protein 6.7 (6.3-8.2) g/dL Albumin 4.2 (3.5-5.0) g/dL
[2020-10-28] MEDS ORDERED: DEXAMETHASONE SOD PHOSPHATE 4 MG/ML 1 ML VIAL IV ONE (18:55)
[2020-10-28] MEDS: LACTATED RINGERS 1,000 ML IV SCH (20:07)
[2020-10-28] MEDS: MELATONIN 5 MG TABLET PO SCH (20:07)
[2020-10-28] MEDS: MORPHINE SULFATE 4 MG/ML SYRINGE IV PRN (20:12)
[2020-10-29 00:06] LABS: Hepatitis A Antibody IgM Non-Reactive (Non-Reactive); Hepatitis B Core IgM Non-Reactive (Non-Reactive); Hepatitis B Surface Antigen Non-Reactive (Non-Reactive); Hepatitis C IgG Antibody Non-Reactive (Non-Reactive)
[2020-10-29 06:07] LABS: Basophils % (A) 0 %; Eosinophils % (A) 0 %; HCT 40.9 % (34.0-46.0); Lymphocytes # (A) 0.7 k/uL (1.0-4.8); Lymphocytes % (A) 16 %; MCH 29.4 pg (25.0-35.0); MCHC 34.2 g/dL (31.0-37.0); MCV 85.9 fL (80.0-100.0); Monocytes # (A) 0.1 k/uL (0-1.0); Monocytes % (A) 2 %; Neutrophils # (A) 3.7 k/uL (1.3-7.7); Neutrophils % (A) 81 %; Platelet Count 193 k/uL (150-450); RBC 4.76 m/uL (3.80-5.40); RDW 12.8 % (11.5-15.5); WBC 4.5 k/uL (3.8-10.6)
[2020-10-29] MEDS: LEVOTHYROXINE 137 MCG TAB PO SCH (06:07)
[2020-10-29 06:17] LABS: ALT 196 U/L (4-34); AST 136 U/L (14-36); African American GFR (CKD) >90 (>60 ml/min/1.73 sqM); Albumin 4.2 g/dL (3.5-5.0); Albumin/Globulin Ratio 1.5; Alkaline Phosphatase 84 U/L (38-126); Anion Gap 6 mmol/L; Blood Urea Nitrogen 13 mg/dL (7-17); Calcium 9.5 mg/dL (8.4-10.2); Carbon Dioxide 30 mmol/L (22-30); Chloride 105 mmol/L (98-107); Cholesterol 236 mg/dL (<200); Globulin 2.8 g/dL; Glucose 120 mg/dL (74-99); HDL Cholesterol 57 mg/dL (40-60); LDL Cholesterol,Calculated 166 mg/dL (0-99); Non-African American GFR(CKD) 89 (>60 ml/min/1.73 sqM); Potassium 4.7 mmol/L (3.5-5.1); Sodium 141 mmol/L (137-145); Total Bilirubin 0.5 mg/dL (0.2-1.3); Triglycerides 64 mg/dL (<150)
[2020-10-29] MEDS: CHOLECALCIFEROL 25 MCG (1000 IU) TABLET PO SCH (07:16)
--- NOTE | 2020-10-29 10:49 | ECHOF ---
Referral Reason:chest pain MEASUREMENTS -------- HEIGHT: 172.7 cm WEIGHT: 95.3 kg BP: 139/85 RVIDd: 3.1 cm (< 3.3) IVSd: 1.3 cm (0.6 - 1.1) LVIDd: 4.3 cm (3.9 - 5.3) LVPWd: 1.3 cm (0.6 - 1.1) IVSs: 1.7 cm LVIDs: 3.3 cm LVPWs: 1.6 cm LA Diam: 3.3 cm (2.7 - 3.8) LAESV Index (A-L): 29.44 ml/m Ao Diam: 3.2 cm (2.0 - 3.7) AV Cusp: 1.9 cm (1.5 - 2.6) MV EXCURSION: 14.865 mm (> 18.000) MV EF SLOPE: 42 mm/s (70 - 150) EPSS: 0.3 cm MV E Yao: 0.86 m/s MV DecT: 234 ms MV A Yao: 1.18 m/s MV E/A Ratio: 0.72 RAP: 5.00 mmHg RVSP: 29.96 mmHg FINDINGS -------- Sinus rhythm. This was a technically difficult study with suboptimal apical views. The left ventricular size is normal. There is mild concentric left ventricular hypertrophy. Overa ll left ventricular systolic function is normal with, an EF between 60 - 65 %. The right ventricle is normal in size. Normal LA size by volume 22+/-6 ml/m2. The right atrium is normal in size. 5.0mg OF Lumason UTLIZED: 2 OR MORE WALL SEGMENTS NOT VISUALIZED. The aortic valve is trileaflet, and appears structurally normal. No aortic stenosis or regurgitation. Mild mitral regurgitation is present. Mild tricuspid regurgitation present. Right ventricular systolic pressure is normal at < 35 mmHg. Trace/mild (physiologic) pulmonic regurgitation. The aortic root size is normal. Normal inferior vena cava with normal inspiratory collapse consistent with estimated right atrial pre ssure of 5 mmHg. There is no pericardial effusion. CONCLUSIONS -------- 1. The left ventricular size is normal. 2. There is mild concentric left ventricular hypertrophy. 3. Overall left ventricular systolic function is normal with, an EF between 60 - 65 %. 4. 5.0mg OF Lumason UTLIZED: 2 OR MORE WALL SEGMENTS NOT VISUALIZED. 5. The aortic valve is trileaflet, and appears structurally normal. No aortic stenosis or regurgitati on. 6. Mild mitral regurgitation is present. 7. Mild tricuspid regurgitation present. 8. Trace/mild (physiologic) pulmonic regurgitation. 9. There is no pericardial effusion. GAMING COMMISSIONER: NICKI Cooley
--- NOTE | 2020-10-29 12:37 | P.PN ---
Subjective HISTORY OF PRESENTING ILLNESS This is a pleasant 60-year-old female past medical history significant for hypertension, dyslipidemia, hypothyroidism. She used to follow up in the office with Dr. Alexis, lasting seen in December 2017. We have been asked to see in consultation for chest pain. Patient is seen and examined at bedside, no acute distress. She presents to the hospital with complaints of chest pain. She states she had an episode of tightness that was across her ribs. She had associated shortness of breath. her symptoms lasted a couple hours and then resolved. This is non-exertional. Nonradiating. She had some nausea. She denies history of diabetes, [place], or stroke. She denies tobacco use. Denies alcohol use.Denies family history of cardiac disease. Current home medications include Zytrec 10mg daily, melatonin 5mg nightly, Synthroid, vitamin D3. She had a exercise stress test in 2011 which revealed normal ejection fraction, no reversible defect, septal anterior wall fixed defects just the soft tissue attenuation. Echocardiogram in 2016 revealed normal EF 55%. When patient was last seen in 12/2017 was recommended to get a stress echo in 2-3 weeks the patient did not follow up in the office to get this completed. EKG reveals sinus rhythm, heart rate 62, no significant STT wave abnormalities. Chest xray heart size is mildly enlarged. No acute pulmonary process. Abdominal ultrasound revealed possible small stones and/or gallbladder sludge. No acute cholecystitis 10/29/2020: Patient seen and examined at bedside, in no acute distress. BP 132/72, heart rate 73, afebrile, maintaining oxygen saturation 95% on room air. Telemetry reviewed patient in sinus mechanism heart rate 60 to 70s. No arrhythmia or ectopy noted. Laboratory reviewed, CBC unremarkable, d-dimer negative, sodium 141, potassium 4.7, creatinine 0.73, troponin negative 3, AST 136 (177 yesterday), ALT 196 (88 yesterday), amylase and lipase within normal limits, Triglyerides 64, Cholesterol 236, LDL 16, HDL 57. Echocardiogram reviewed EF 60-65%, mild mitral regurgitation, mild tricuspid regurgitation. PHYSICAL EXAMINATION CONSTITUTIONAL: No apparent distress. HEENT: Neck Supple No JVD. CHEST EXAMINATION: Lungs are clear to auscultation. HEART EXAMINATION: Regular rate and rhythm. S1, S2 heard. No murmurs, gallops or rub. ABDOMEN: Soft, nontender. Positive bowel sounds. EXTREMITIES: 2+ peripheral pulses, no lower extremity edema NEUROLOGIC EXAMINATION: Patient is awake, alert and oriented x3. ASSESSMENT Chest pain, atypical. acute coronary syndrome has been ruled out. Nausea and vomiting, abdominal ultrasound showing possible small stones and/or gallbladder sludge History of hypertension Dyslipidemia Hypothyroidism PLAN -Stress echo today and reviewed, no evidence of reversible ischemia. -Patient is scheduled for laparoscopic cholecystectomy today with Dr. Mustafa. -From cardiology perspective, Patient may proceed with surgery with no additional cardiac testing or procedures. She does not have any history of congestive heart failure, history of arrhythmia, history of ischemic heart disease, history of CVA, or diabetes. Patient is able to perform >4 METs levels of activity and does not have any acute cardiac conditions. Nurse Practitioner note has been reviewed, I agree with a documented findings and plan of care. Patient was seen and examined. Objective - Vital Signs Vital signs: Vital Signs Temp 98.1 F 10/29/20 07:00 Pulse 73 10/29/20 07:00 Resp 18 10/29/20 07:00 BP 132/72 10/29/20 07:00 Pulse Ox 98 10/29/20 08:12 Intake & Output 10/28/20 10/29/20 10/29/20 18:59 06:59 18:59 Weight 95.254 kg Other: Voiding Method Toilet # Voids 3 1 - Labs CBC & Chem 7: 10/29/20 05:41 10/29/20 05:41 Labs: Abnormal Lab Results - Last 24 Hours (Table) 10/29/20 10/29/20 Range/Units 05:41 05:41 Lymphocytes # 0.7 L (1.0-4.8) k/uL Glucose 120 H (74-99) mg/dL AST 136 H (14-36) U/L ALT 196 H (4-34) U/L Cholesterol 236 H (<200) mg/dL LDL Cholesterol, Calc 166 H (0-99) mg/dL
--- NOTE | 2020-10-29 15:03 | P.PN ---
Subjective Progress Note Date: 10/29/20 CHIEF COMPLAINT: Chest pain HISTORY OF PRESENT ILLNESS: Surgical service is following and regards to jacqueline ent's cholelithiasis and gallbladder sludge noted on ultrasound. Patient had cardiac workup today. Patient has been cleared by cardiology to proceed with surgery. Patient is afebrile. ALT was elevated at 196. WBC normal PHYSICAL EXAM: VITAL SIGNS: Reviewed. GENERAL: Well-developed in no acute distress. HEENT: No sclera icterus. Extraocular movements grossly intact. Moist buccal mucosa. Head is atraumatic, normocephalic. ABDOMEN: Soft. Nondistended. Nontender. NEUROLOGIC: Alert and oriented. Cranial nerves II through XII grossly intact. ASSESSMENT: 1. Cholelithiasis 2. Nausea vomiting with squeezing chest pain and with abdominal ultrasound showing possible small stones and/or gallbladder sludge. 3. Elevated LFTs PLAN: -Patient rescheduled for laparoscopic cholecystectomy tomorrow 10/30/2020 -Keep patient nothing by mouth after midnight Physician Youth Manager note has been reviewed by physician. Signing provider agrees with the documented findings, assessment, and plan of care. Objective - Vital Signs Vital signs: Vital Signs Temp 97.9 F 10/29/20 14:56 Pulse 71 10/29/20 14:56 Resp 18 10/29/20 14:56 BP 140/69 10/29/20 14:56 Pulse Ox 99 10/29/20 14:56 Intake & Output 10/28/20 10/29/20 10/29/20 18:59 06:59 18:59 Weight 95.254 kg Other: Voiding Method Toilet # Voids 3 1 2 - Labs CBC & Chem 7: 10/29/20 05:41 10/29/20 05:41 Labs: Abnormal Lab Results - Last 24 Hours (Table) 10/29/20 10/29/20 Range/Units 05:41 05:41 Lymphocytes # 0.7 L (1.0-4.8) k/uL Glucose 120 H (74-99) mg/dL AST 136 H (14-36) U/L ALT 196 H (4-34) U/L Cholesterol 236 H (<200) mg/dL LDL Cholesterol, Calc 166 H (0-99) mg/dL
--- NOTE | 2020-10-29 16:14 | P.PN ---
Progress Note - Text Progress Note Date: 10/29/20 Chief Complaint: Chest tightness History of presenting complaint: This is a pleasant 60-year-old patient of Dr. Gordon. Chronic stable medical conditions include hypothyroid, insomnia, ALLERGIES. Patient woke up around 4:00 this morning perspiring quite a bit short of breath and tightness around the rib cage. She also painful in the central chest. No fever no chills. No cough. Patient had significant nausea vomiting. Feeling slightly better when I saw the patient this morning. No abdominal pain per se. No diarrhea. Symptoms lasted for less than couple of hours. Central chest pain with no radiation. Admitted with symptomatic gallstones. Cardiac cause been ruled out. Today: Sitting up in bed. Comfortable. No further chest tightness and abdominal pain. at the bedside. No nausea vomiting. Review of systems: Was done for constitutional, cardiovascular, GI, pulmonary. relevant finding as above Active Medications Cholecalciferol (Cholecalciferol 25 Mcg (1000 Iu) Tablet) 75 mcg PO DAILY [facility] Last Admin: 10/29/20 07:16 Dose: 75 mcg Documented by: Hydromorphone HCl (Hydromorphone 0.5 Mg/0.5 Ml Syringe) 0.5 mg IVP Q5M PRN PRN Reason: Pain Control Stop: 10/29/20 23:00 Lactated Ringer's (Lactated Ringers) 1,000 mls @ 20 mls/hr IV .Q24H [facility] Last Admin: 10/28/20 20:07 Dose: 20 mls/hr Documented by: Levothyroxine Sodium (Levothyroxine 137 Mcg Tab) 137 mcg PO 0630 [facility] Last Admin: 10/29/20 06:07 Dose: 137 mcg Documented by: Melatonin (Melatonin 5 Mg Tablet) 5 mg PO HS [facility] Last Admin: 10/28/20 20:07 Dose: 5 mg Documented by: Morphine Sulfate (Morphine Sulfate 4 Mg/Ml Syringe) 4 mg IV Q3H PRN PRN Reason: Chest Pain Last Admin: 10/28/20 20:12 Dose: 4 mg Documented by: Past medical history to include: Hypothyroid, gastric ulcer, irritable bowel syndrome, chronic low back pain/DJD, vitamin D deficiency, ALLERGIES Social history: . Does not smoke. Alcohol rarely. Physical examination: VITAL SIGNS: 37.9, 71, 18, 140/69, 99% room air GENERAL: Sitting up in bed, comfortable EYES: Pupils equal. Conjunctiva normal. NECK: JVD not raised; masses not palpable. HEART: First and second heart sounds are normal; no edema. LUNGS: Respiratory rate normal; clear to auscultation. ABDOMEN: Soft, nontender, liver spleen not palpable, no masses palpable. PSYCH: Alert and oriented x3; mood and affect normal. INVESTIGATIONS, reviewed in the clinical context: October 29: WBC 4.5 hemoglobin 14 platelets 193 potassium 4.7 creatinine 0.73 AST 136 ALT 196 6 LDL 166 2-D echocardiogram: EF 60-65%. Acute hepatitis screen: Nonreactive WBC 5.7 hemoglobin 13.7 platelets 188 d-dimer 0.45 potassium 4.1 bun 28 creatinine 0.86 AST 177 ALT 88 Troponin I 3 negative Amylase 59 and lipase 132 Coronavirus [PCL]-not detected EKG tracing personally reviewed by me-normal sinus rhythm Chest x-ray film personally reviewed by me-lung mari clear Abdominal ultrasound: Gallbladder: Debris and probable stones Assessment and plan: -Anterior chest wall pain. Cardiac enzymes negative. EKG unremarkable. 2-D echocardiogram no wall motion abnormality. Being followed by cardiology -Choledocholithiasis-symptomatic Surgery consulted. Pending cholecystectomy -Hypothyroid Continue Synthroid -Chronic idiopathic insomnia Continue melatonin -Vitamin D deficiency Continue with vitamin D3 Care was discussed with the patient. Patient being put on full liquid diet. For cholecystectomy tomorrow.
[2020-10-29] MEDS: MORPHINE SULFATE 4 MG/ML SYRINGE IV PRN (17:32)
[2020-10-29 21:22] LABS: Glucose,Whole Blood 103 mg/dL (75-99)
[2020-10-29] MEDS: MELATONIN 5 MG TABLET PO SCH (22:15)
[2020-10-29] MEDS: PROCHLORPERAZINE 5 MG TAB PO PRN (22:15)
[2020-10-29] MEDS: LACTATED RINGERS 1,000 ML IV SCH (22:16)
[2020-10-30] MEDS: LEVOTHYROXINE 137 MCG TAB PO SCH (05:53)
[2020-10-30 06:33] LABS: Basophils % (A) 0 %; Eosinophils # (A) 0.1 k/uL (0-0.7); Eosinophils % (A) 3 %; HCT 37.5 % (34.0-46.0); Lymphocytes # (A) 1.9 k/uL (1.0-4.8); Lymphocytes % (A) 44 %; MCH 29.9 pg (25.0-35.0); MCHC 34.6 g/dL (31.0-37.0); MCV 86.6 fL (80.0-100.0); Mean Platelet Volume 8.1; Monocytes # (A) 0.2 k/uL (0-1.0); Monocytes % (A) 4 %; Neutrophils # (A) 2.1 k/uL (1.3-7.7); Neutrophils % (A) 47 %; Platelet Count 160 k/uL (150-450); RBC 4.33 m/uL (3.80-5.40); WBC 4.4 k/uL (3.8-10.6)
[2020-10-30 06:48] LABS: ALT 119 U/L (4-34); AST 52 U/L (14-36); African American GFR (CKD) 89 (>60 ml/min/1.73 sqM); Albumin 3.9 g/dL (3.5-5.0); Albumin/Globulin Ratio 1.7; Alkaline Phosphatase 64 U/L (38-126); Anion Gap 5 mmol/L; Blood Urea Nitrogen 18 mg/dL (7-17); Calcium 9.1 mg/dL (8.4-10.2); Carbon Dioxide 32 mmol/L (22-30); Chloride 105 mmol/L (98-107); Globulin 2.3 g/dL; Glucose 88 mg/dL (74-99); Non-African American GFR(CKD) 77 (>60 ml/min/1.73 sqM); Potassium 4.1 mmol/L (3.5-5.1); Sodium 142 mmol/L (137-145); Total Bilirubin 0.6 mg/dL (0.2-1.3); Total Protein 6.2 g/dL (6.3-8.2)
[2020-10-30] MEDS ORDERED: ONDANSETRON 4 MG/2 ML VIAL ONE (13:30)
[2020-10-30] MEDS ORDERED: IV FLUID CONTINUATION 1,000 ML IV ONE (13:33)
[2020-10-30] MEDS ORDERED: ONDANSETRON 4 MG/2 ML VIAL IVP ONE (13:35)
[2020-10-30] MEDS ORDERED: SCOPOLAMINE 1.5MG/72HR PATCH TRANSDERM ONE (13:36)
[2020-10-30] MEDS ORDERED: DEXAMETHASONE SOD PHOSPHATE 4 MG/ML 1 ML VIAL IV ONE (13:36)
[2020-10-30] MEDS ORDERED: MIDAZOLAM 2 MG/2 ML VIAL IV ONE (13:36)
[2020-10-30] MEDS: CHOLECALCIFEROL 25 MCG (1000 IU) TABLET PO SCH (13:46)
[2020-10-30] MEDS ORDERED: HEPARIN SODIUM,PORCINE 5,000 UNIT/ML 1 ML VIAL SQ ONE (14:12)
[2020-10-30] MEDS ORDERED: HEPARIN SODIUM,PORCINE/PF 5,000 UNIT/0.5 ML SYRINGE SQ ONE (14:13)
[2020-10-30] MEDS: LACTATED RINGERS 1,000 ML IV SCH ×2 (14:15→14:21)
[2020-10-30] MEDS ORDERED: PROPOFOL 10 MG/ML 20 ML VIAL IV ONE (14:15)
[2020-10-30] MEDS ORDERED: fentaNYL (PF) 50 MCG/ML 2 ML AMP ONE (14:15)
[2020-10-30] MEDS ORDERED: MIDAZOLAM 2 MG/2 ML VIAL ONE (14:15)
[2020-10-30] MEDS ORDERED: LIDOCAINE 1% INJ 10MG/ML (20 ML MDV) ONE (14:15)
[2020-10-30] MEDS ORDERED: GLYCOPYRROLATE 0.2 MG/ML 2 ML VIAL ONE (14:15)
[2020-10-30] MEDS ORDERED: SODIUM CHLORIDE 0.9% 100 ML BAG ONE (14:15)
[2020-10-30] MEDS ORDERED: SUCCINYLCHOLINE CHLORIDE 100 MG/5 ML SYR IV ONE (14:15)
[2020-10-30] MEDS ORDERED: NEOSTIGMINE 1 MG/ML 10 ML VIAL ONE (14:15)
[2020-10-30] MEDS ORDERED: ceFAZolin 1,000 MG VIAL ONE (14:15)
[2020-10-30] MEDS ORDERED: ROCURONIUM 10 MG/ML (5 ML VIAL) IV ONE (14:15)
[2020-10-30] MEDS ORDERED: BUPIVACAINE-EPI 0.5%-1:200,000 10 ML VIAL SQ ONE ×2 (14:38→14:41)
--- NOTE | 2020-10-30 14:58 | P.OP ---
Date of Procedure: 10/30/20 Preoperative Diagnosis: cholecystitis Postoperative Diagnosis: cholecystitis Procedure(s) Performed: laparoscopic cholecystectomy Anesthesia: JENNA Surgeon: Jos Mustafa Estimated Blood Loss (ml): 5 Pathology: other (gallbladder) Condition: stable Disposition: PACU Description of Procedure: The patient was placed on the operating table. The patient received a general endotracheal tube anesthesia. The patients abdomen was prepped and draped in the usual sterile fashion. Through an infraumbilical stab incision, the fascia of the anterior abdominal wall was grasped with a pair of Kochers and then the Veress needle was placed in the peritoneal cavity. Position of the Veress needle was confirmed with positive drop test. The abdomen was then insufflated. After adequate insufflation, the 10 mm trocar was placed in the peritoneal cavity. Following this the laparoscope was placed in the peritoneal cavity. The patient was placed in the head-up, right side up position and then a 5 mm trocar was placed in the right lateral and right subcostal position under direct visualization. A 8 mm trocar was placed in the epigastric position. The gallbladder was grasped in the fundus and infundibulum. Traction on the gallbladder was placed in the lateral and the cephalad positions. The triangle of Calot was visualized.. The cystic duct was bluntly dissected until the union of the cystic duct and common bile duct was seen. A critical view of safety was achieved. The cystic duct was then divided and sealed with the Harmonic scissors. A PDS Endoloop was then placed throughout the cystic duct stump. The cystic artery divided and sealed with the Harmonic scissors. The gallbladder was then removed from the liver bed using Harmonic scissors. The gallbladder was then extracted through the epigastric port site. Operative field was checked for any bleeding spots and Harmonic scissors was used to coagulate the liver bed. The abdomen was irrigated. The trocars were removed. The skin was closed using interrupted 3-0 Vicryl suture. Dermabond dressing were applied. The patient tolerated the procedure well.
[2020-10-30] MEDS ORDERED: HYDROmorphone 0.5 MG/0.5 ML SYRINGE IVP ONE (15:10)
[2020-10-30] MEDS: HYDROmorphone 0.5 MG/0.5 ML SYRINGE IVP PRN ×2 (15:20→15:30)
[2020-10-30] MEDS ORDERED: LACTATED RINGERS 1,000 ML IV ONE ×2 (15:20)
[2020-10-30] MEDS: HYDROmorphone 1 MG/ML 1 ML SYRINGE IVP PRN (16:34)
--- NOTE | 2020-10-30 18:01 | P.PN ---
Progress Note - Text Progress Note Date: 10/30/20 Chief Complaint: Chest tightness History of presenting complaint: This is a pleasant 60-year-old patient of Dr. Gordon. Chronic stable medical conditions include hypothyroid, insomnia, ALLERGIES. Patient woke up around 4:00 this morning perspiring quite a bit short of breath and tightness around the rib cage. She also painful in the central chest. No fever no chills. No cough. Patient had significant nausea vomiting. Feeling slightly better when I saw the patient this morning. No abdominal pain per se. No diarrhea. Symptoms lasted for less than couple of hours. Central chest pain with no radiation. Admitted with symptomatic gallstones. Cardiac cause been ruled out. Stress echocardiogram negative for ischemia. Today: Saw the patient this morning. Sitting up in bed. No chest pain or abdominal pain. Awaiting cholecystectomy. Review of systems: Was done for constitutional, cardiovascular, GI, pulmonary. relevant finding as above Active Medications Cholecalciferol (Cholecalciferol 25 Mcg (1000 Iu) Tablet) 75 mcg PO DAILY [facility] Last Admin: 10/30/20 13:46 Dose: Not Given Documented by: Hydromorphone HCl (Hydromorphone 1 Mg/Ml 1 Ml Syringe) 1 mg IVP Q1HR PRN PRN Reason: Severe Pain Last Admin: 10/30/20 16:34 Dose: 1 mg Documented by: Lactated Ringer's (Lactated Ringers) 1,000 mls @ 20 mls/hr IV .Q24H [facility] Last Admin: 10/30/20 14:21 Dose: 875 mls Documented by: Levothyroxine Sodium (Levothyroxine 137 Mcg Tab) 137 mcg PO 0630 [facility] Last Admin: 10/30/20 05:53 Dose: 137 mcg Documented by: Melatonin (Melatonin 5 Mg Tablet) 5 mg PO HS [facility] Last Admin: 10/29/20 22:15 Dose: 5 mg Documented by: Morphine Sulfate (Morphine Sulfate 4 Mg/Ml Syringe) 4 mg IV Q3H PRN PRN Reason: Chest Pain Last Admin: 10/29/20 17:32 Dose: 4 mg Documented by: Prochlorperazine Maleate (Prochlorperazine 5 Mg Tab) 5 mg PO Q8HR PRN PRN Reason: Nausea And Vomiting Last Admin: 10/29/20 22:15 Dose: 5 mg Documented by: Past medical history to include: Hypothyroid, gastric ulcer, irritable bowel syndrome, chronic low back pain/DJD, vitamin D deficiency, ALLERGIES Social history: . Does not smoke. Alcohol rarely. Physical examination: VITAL SIGNS: 97.9, 68, 18, 156/70, 100% room air GENERAL: Sitting up in bed, comfortable EYES: Pupils equal. Conjunctiva normal. NECK: JVD not raised; masses not palpable. HEART: First and second heart sounds are normal; no edema. LUNGS: Respiratory rate normal; clear to auscultation. ABDOMEN: Soft, nontender, liver spleen not palpable, no masses palpable. PSYCH: Alert and oriented x3; mood and affect normal. INVESTIGATIONS, reviewed in the clinical context: October 30: WBC 4.4 hemoglobin 13 potassium 4.1 creatinine 0.82 October 29: WBC 4.5 hemoglobin 14 platelets 193 potassium 4.7 creatinine 0.73 AST 136 ALT 196 6 LDL 166 2-D echocardiogram: EF 60-65%. Acute hepatitis screen: Nonreactive WBC 5.7 hemoglobin 13.7 platelets 188 d-dimer 0.45 potassium 4.1 bun 28 creatinine 0.86 AST 177 ALT 88 Troponin I 3 negative Amylase 59 and lipase 132 Coronavirus [PCL]-not detected EKG tracing personally reviewed by me-normal sinus rhythm Chest x-ray film personally reviewed by me-lung mari clear Abdominal ultrasound: Gallbladder: Debris and probable stones Assessment and plan: -Anterior chest wall pain. Cardiac enzymes negative. EKG unremarkable. 2-D echocardiogram no wall motion abnormality. Being followed by cardiology -Choledocholithiasis-symptomatic Surgery consulted. Pending cholecystectomy-this afternoon -Hypothyroid Continue Synthroid -Chronic idiopathic insomnia Continue melatonin -Vitamin D deficiency Continue with vitamin D3 Care was discussed with the patient. Nothing by mouth For cholecystectomy later today
[2020-10-30] MEDS: MELATONIN 5 MG TABLET PO SCH (21:26)
[2020-10-31] MEDS: MORPHINE SULFATE 4 MG/ML SYRINGE IV PRN ×2 (00:21→03:16)
[2020-10-31 03:21] VITALS: RESP 16; TEMP 98.5
[2020-10-31] MEDS: LEVOTHYROXINE 137 MCG TAB PO SCH (05:41)
[2020-10-31 07:44] VITALS: BP 143/75; PULSE 64
[2020-10-31] MEDS: CHOLECALCIFEROL 25 MCG (1000 IU) TABLET PO SCH (07:48)
[2020-10-31] MEDS: HYDROmorphone 1 MG/ML 1 ML SYRINGE IVP PRN (07:48)
[2020-10-31] MEDS ORDERED: HYDROcodone/APAP 5-325MG 1 EACH TAB PO PRN (08:19)
--- NOTE | 2020-10-31 08:25 | ECHOS ---
STRESS ECHOCARDIOGRAM LUMASON: N/A Vial INDICATIONS: Chest pain MEDICATIONS: BASELINE HEART RATE: 72 BASELINE BLOOD PRESSURE: 134/64 MAXIMUM HEART RATE: 150 MAXIMUM BLOOD PRESSURE: 209/63 85% MPHR: 134 100% MPHR: 158 METS: 9.5 MAXIMUM STAGE REACHED: III TOTAL EXERCISE TIME: 8 minutes CLINICAL INFORMATION: Baseline EKG revealed normal sinus rhythm with leftward axis. No acute changes. Patient walked on a standard To protocol for 8 minutes achieved a maximal heart rate of 150 beats per minute which is more than 85% of predicted maximal. She developed fatigue and shortness of breath but did not have angina or arrhythmia. Peak blood pressure was 209/63. The patient had somewhat of a hypertensive response to exercise. By EKG criteria, this is a negative stress test with fair exercise capacity. Baseline echo images revealed normal wall motion and wall thickening of all segments. At peak exercise, there was good augmentation of left ventricular wall motion and wall thickening of all segments suggesting that there is no evidence of any stress-induced ischemia on this study. FINAL IMPRESSION: 1. Fair exercise capacity. Negative stress test by EKG criteria. 2. Normal stress echocardiogram without evidence of ischemia. MMODL / IJN: [id number] /
[2020-10-31] MEDS: PROCHLORPERAZINE 5 MG TAB PO PRN (10:21)
--- NOTE | 2020-10-31 12:06 | P.PN ---
Subjective Progress Note Date: 10/31/20 CHIEF COMPLAINT: Chest pain HISTORY OF PRESENT ILLNESS: Surgical service is following and regards to jacqueline ent's cholelithiasis and gallbladder sludge noted on ultrasound. Patient is status post laparoscopic cholecystectomy. She tolerated surgery well. Her pain is controlled. She is tolerating diet. She is passing gas. She is ambulating. She is afebrile. Patient had cardiac workup today. Patient has been cleared by cardiology to proceed with surgery. Patient is afebrile. ALT was elevated at 196. WBC normal PHYSICAL EXAM: VITAL SIGNS: Reviewed. GENERAL: Well-developed in no acute distress. HEENT: No sclera icterus. Extraocular movements grossly intact. Moist buccal mucosa. Head is atraumatic, normocephalic. ABDOMEN: Soft. Nondistended. Incision sites clean dry and intact NEUROLOGIC: Alert and oriented. Cranial nerves II through XII grossly intact. ASSESSMENT: 1. Cholecystitis status post laparoscopic cholecystectomy PLAN: -Patient is stable from surgical standpoint for discharge -We'll have patient follow-up with Dr. chacko in 1 week Physician Partner Cco note has been reviewed by physician. Signing provider agrees with the documented findings, assessment, and plan of care. Objective - Vital Signs Vital signs: Vital Signs Temp 98.5 F 10/31/20 07:00 Pulse 64 10/31/20 07:00 Resp 16 10/31/20 08:00 BP 143/75 10/31/20 07:00 Pulse Ox 99 10/31/20 07:00 Intake & Output 10/30/20 10/31/20 10/31/20 18:59 06:59 18:59 Intake Total 1525 100 Output Total 5 Balance 1520 100 Weight 95.254 kg Intake: IV 1525 Oral 100 Output: Estimated Blood Loss 5 Other: Voiding Method Toilet Toilet Toilet # Voids 3 1 - Labs CBC & Chem 7: 10/30/20 05:55 10/30/20 05:55
--- NOTE | 2020-10-31 12:23 | P.PN ---
Subjective HISTORY OF PRESENTING ILLNESS This is a pleasant 60-year-old female past medical history significant for hypertension, dyslipidemia, hypothyroidism. She used to follow up in the office with Dr. Alexis, lasting seen in December 2017. We have been asked to see in consultation for chest pain. Patient is seen and examined at bedside, no acute distress. She presents to the hospital with complaints of chest pain. She states she had an episode of tightness that was across her ribs. She had associated shortness of breath. her symptoms lasted a couple hours and then resolved. This is non-exertional. Nonradiating. She had some nausea. She denies history of diabetes, [place], or stroke. She denies tobacco use. Denies alcohol use.Denies family history of cardiac disease. Current home medications include Zytrec 10mg daily, melatonin 5mg nightly, Synthroid, vitamin D3. She had a exercise stress test in 2011 which revealed normal ejection fraction, no reversible defect, septal anterior wall fixed defects just the soft tissue attenuation. Echocardiogram in 2016 revealed normal EF 55%. When patient was last seen in 12/2017 was recommended to get a stress echo in 2-3 weeks the patient did not follow up in the office to get this completed. EKG reveals sinus rhythm, heart rate 62, no significant STT wave abnormalities. Chest xray heart size is mildly enlarged. No acute pulmonary process. Abdominal ultrasound revealed possible small stones and/or gallbladder sludge. No acute cholecystitis 10/29/2020: Patient seen and examined at bedside, in no acute distress. BP 132/72, heart rate 73, afebrile, maintaining oxygen saturation 95% on room air. Telemetry reviewed patient in sinus mechanism heart rate 60 to 70s. No arrhythmia or ectopy noted. Laboratory reviewed, CBC unremarkable, d-dimer negative, sodium 141, potassium 4.7, creatinine 0.73, troponin negative 3, AST 136 (177 yesterday), ALT 196 (88 yesterday), amylase and lipase within normal limits, Triglyerides 64, Cholesterol 236, LDL 16, HDL 57. Echocardiogram reviewed EF 60-65%, mild mitral regurgitation, mild tricuspid regurgitation. 10/31/20: Patient is POD #1 laparoscopy cholecystectomy. Patient seen and examined at bedside, no acute distress. Pain is controlled. Vital signs stable. No acute events overnight. Laboratory data reviewed. PHYSICAL EXAMINATION CONSTITUTIONAL: No apparent distress. HEENT: Neck Supple No JVD. CHEST EXAMINATION: Lungs are clear to auscultation. HEART EXAMINATION: Regular rate and rhythm. S1, S2 heard. No murmurs, gallops or rub. ABDOMEN: Soft, nontender. Positive bowel sounds. Incision sites clean dry intact. EXTREMITIES: 2+ peripheral pulses, no lower extremity edema NEUROLOGIC EXAMINATION: Patient is awake, alert and oriented x3. ASSESSMENT Chest pain, atypical. acute coronary syndrome has been ruled out. Nausea and vomiting, abdominal ultrasound showing possible small stones and/or gallbladder sludge History of hypertension Dyslipidemia Hypothyroidism PLAN From cardiology perspective, no additional cardiac testing indicated. Patient is stable. We will sign off at this time. Patient should follow up with Dr. Alexis at her next scheduled appointment Nurse Practitioner note has been reviewed, I agree with a documented findings and plan of care. Patient was seen and examined. Objective - Vital Signs Vital signs: Vital Signs Temp 98.5 F 10/31/20 07:00 Pulse 64 10/31/20 07:00 Resp 16 10/31/20 08:00 BP 143/75 10/31/20 07:00 Pulse Ox 99 10/31/20 07:00 Intake & Output 10/30/20 10/31/20 10/31/20 18:59 06:59 18:59 Intake Total 1525 100 Output Total 5 Balance 1520 100 Weight 95.254 kg Intake: IV 1525 Oral 100 Output: Estimated Blood Loss 5 Other: Voiding Method Toilet Toilet Toilet # Voids 3 1 - Labs CBC & Chem 7: 10/30/20 05:55 10/30/20 05:55
--- NOTE | 2020-10-31 16:50 | P.DS ---
Providers Date of admission: 10/30/20 10:33 Expected date of discharge: 10/31/20 Attending physician: Rehan Epps Consults: 10/28/20 08:21 Consult Physician Routine Consulting Provider: Jos Mustafa Consult Reason/Comments: Suspect biliary colic Do you want consulting provider notified?: Yes 10/28/20 11:55 Consult Physician Routine Consulting Provider: Brody Dumont Consult Reason/Comments: chest pain Do you want consulting provider notified?: Yes Primary care physician: [facility] Course: Chief Complaint: Chest tightness History of presenting complaint: This is a pleasant 60-year-old patient of Dr. Gordon. Chronic stable medical conditions include hypothyroid, insomnia, ALLERGIES. Patient woke up around 4:00 this morning perspiring quite a bit short of breath and tightness around the rib cage. She also painful in the central chest. No fever no chills. No cough. Patient had significant nausea vomiting. Feeling slightly better when I saw the patient this morning. No abdominal pain per se. No diarrhea. Symptoms lasted for less than couple of hours. Central chest pain with no radiation. Admitted with symptomatic gallstones. . Stress echocardiogram negative for ischemia. Cleared for surgery. October 30, underwent laparoscopic cholecystectomy. Today: Feeling much better. Tolerating a diet. Up in ambulating in the hallway. Feeling much better. Discussed with the patient. Cleared by surgery for discharge. Consultation: Dr. Mustafa from general surgery Dr. MERA Alexis from cardiology Past medical history to include: Hypothyroid, gastric ulcer, irritable bowel syndrome, chronic low back pain/DJD, vitamin D deficiency, ALLERGIES Social history: . Does not smoke. Alcohol rarely. Physical examination: VITAL SIGNS: 98.5, 64, 16, 143.75, 99% room air GENERAL: comfortable EYES: Pupils equal. Conjunctiva normal. NECK: JVD not raised; masses not palpable. HEART: First and second heart sounds are normal; no edema. LUNGS: Respiratory rate normal; clear to auscultation. ABDOMEN: Soft, minimal tenderness, liver spleen not palpable, no masses palpable. PSYCH: Alert and oriented x3; mood and affect normal. INVESTIGATIONS, reviewed in the clinical context: October 30: WBC 4.4 hemoglobin 13 potassium 4.1 creatinine 0.82 October 29: WBC 4.5 hemoglobin 14 platelets 193 potassium 4.7 creatinine 0.73 AST 136 ALT 196 6 LDL 166 2-D echocardiogram: EF 60-65%. Acute hepatitis screen: Nonreactive WBC 5.7 hemoglobin 13.7 platelets 188 d-dimer 0.45 potassium 4.1 bun 28 creatinine 0.86 AST 177 ALT 88 Troponin I 3 negative Amylase 59 and lipase 132 Coronavirus [PCL]-not detected EKG tracing personally reviewed by me-normal sinus rhythm Chest x-ray film personally reviewed by me-lung mari clear Abdominal ultrasound: Gallbladder: Debris and probable stones Assessment and plan: -Anterior chest wall pain. Cardiac enzymes negative. EKG unremarkable. 2-D echocardiogram no wall motion abnormality. Negative stress echocardiogram. -Choledocholithiasis-symptomatic Surgery consulted. Laparoscopic cholecystectomy -Hypothyroid Continue Synthroid -Chronic idiopathic insomnia Continue melatonin -Vitamin D deficiency Continue with vitamin D3 Disposition: Home Patient Condition at Discharge: Good Plan - Discharge Summary Discharge Rx Participant: No New Discharge Prescriptions: New Prochlorperazine [Compazine] 5 mg PO Q8HR PRN #14 tab PRN Reason: Nausea And Vomiting Docusate [Colace] 100 mg PO BID #30 capsule HYDROcodone/APAP 5-325MG [[place] 5-325] 1 tab PO Q6HR PRN 3 Days #12 tab PRN Reason: Pain Continue Cetirizine HCl [Zyrtec] 10 mg PO DAILY Melatonin 5 mg PO HS Levothyroxine Sodium [Synthroid] 137 mcg PO DAILY Cholecalciferol (Vitamin D3) [Vitamin D3 (3000 Iu)] 75 mcg PO DAILY Discharge Medication List Cetirizine HCl [Zyrtec] 10 mg PO DAILY 10/28/20 [History] Cholecalciferol (Vitamin D3) [Vitamin D3 (3000 Iu)] 75 mcg PO DAILY 10/28/20 [History] Levothyroxine Sodium [Synthroid] 137 mcg PO DAILY 10/28/20 [History] Melatonin 5 mg PO HS 10/28/20 [History] Docusate [Colace] 100 mg PO BID #30 capsule 10/31/20 [Rx] HYDROcodone/APAP 5-325MG [[place] 5-325] 1 tab PO Q6HR PRN 3 Days #12 tab 10/31/20 [Rx] Prochlorperazine [Compazine] 5 mg PO Q8HR PRN #14 tab 10/31/20 [Rx] Follow up Appointment(s)/Referral(s): Adwoa Alexis MD [STAFF PHYSICIAN] - 11/20/20 10:00 am Ermias Gordon DO [Primary Care Provider] - 1-2 days (Message left at office to call with appointment time) Jos Mustafa MD [STAFF PHYSICIAN] - 11/07/20 4:15 pm Patient Instructions/Handouts: *Surgery [facility] - Laparoscopic Cholecystectomy Discharge Instructions, Laparoscopic Cholecystectomy (DC) Activity/Diet/Wound Care/Special Instructions: No driving while taking [place] No lifting over 10 pounds You may shower. No soaking or tub baths for 2 weeks Very light activity until you are reevaluated at your follow up appointment with your surgeon
== END 2020-10-31 13:19 | disposition home or self-care (01) | DRG 419 ==
LOC: EC 05:08 → 6NMEDSUR 08:12 → OBSVTOIN 10-30 10:33
PROVIDERS: ADMIT Hospitalist; ATTEND Hospitalist
PROC: 0FT44ZZ Resection of Gallbladder, Percutaneous Endoscopic Approach (ICD-10-PCS; principal; 2020-10-30 13:20)
DX: K80.64 Calculus of gallbladder and bile duct with chronic cholecystitis without obstruction (principal); E03.9 Hypothyroidism, unspecified; Z20.822 Contact with and (suspected) exposure to COVID-19; F51.01 Primary insomnia; E55.9 Vitamin D deficiency, unspecified; E78.5 Hyperlipidemia, unspecified; I10 Essential (primary) hypertension; K21.9 Gastro-esophageal reflux disease without esophagitis; K58.0 Irritable bowel syndrome with diarrhea; M54.5 Low back pain; G89.29 Other chronic pain; M19.90 Unspecified osteoarthritis, unspecified site; F41.9 Anxiety disorder, unspecified; Z79.890 Hormone replacement therapy; Z79.899 Other long term (current) drug therapy; Z87.11 Personal history of peptic ulcer disease; Z90.89 Acquired absence of other organs; Z87.42 Personal history of other diseases of the female genital tract; Z98.42 Cataract extraction status, left eye; Z98.41 Cataract extraction status, right eye; Z96.1 Presence of intraocular lens; Z87.440 Personal history of urinary (tract) infections; Z98.890 Other specified postprocedural states; Z88.0 Allergy status to penicillin; Z81.8 Family history of other mental and behavioral disorders; Z83.3 Family history of diabetes mellitus; Z82.49 Family history of ischemic heart disease and other diseases of the circulatory system
CPT/HCPCS: 36415; 71045; 76705; 80053; 80061; 80074; 82150; 83690; 83735; 84484; 85025; 85379; 85610; 85730; 87635; 88304; 93005; 93306; 93351; 94760; 96374; 96375; 99285

== ENCOUNTER 2022-03-20 11:10 | Day surgery (SDC) | payer BC ==
[2022-03-18 16:02] VITALS: BMI 33.4
[~2022-03-20 11:10] MED LIST: LACTATED RINGERS 1,000 ML IV SCH; LIDOCAINE 1% (10MG/ML) FOR IV START INTRADERMA PRN
[2022-03-20 13:30] VITALS: TEMP 98
[2022-03-20] MEDS ORDERED: PROPOFOL 10 MG/ML 20 ML VIAL IV ONE (14:03)
--- NOTE | 2022-03-20 14:21 | P.PCN ---
Date of Procedure: 03/20/22 Procedure(s) Performed: BRIEF HISTORY: Patient is a 61-year-old pleasant female scheduled for an elective colonoscopy as a part of screening for colon cancer PROCEDURE PERFORMED: Colonoscopy. PREOPERATIVE DIAGNOSIS: Screening for colon cancer. IV sedation per Anesthesia. PROCEDURE: After informed consent was obtained, the patient, was brought into the endoscopy unit. IV sedation was administered by Anesthesia under continuous monitoring. Digital rectal examination was normal. Initially the Olympus CF-160 flexible video colonoscope was then inserted in the rectum, gradually advanced into the cecum without any difficulty. Careful examination was performed as the scope was gradually being withdrawn. Ileocecal valve and the appendiceal orifice were visualized and appeared normal. Prep was fair. Mucosa of the cecum, had some sticky stool noted but no mucosal pathology seen. Rest of the ascending colon, transverse colon, descending colon, sigmoid colon, and rectum appeared normal. Retroflexion was performed in the rectum and no lesions were seen. The patient tolerated the procedure well. IMPRESSION: Normal-appearing colon from rectum to cecum with no evidence of colorectal neoplasia . RECOMMENDATIONS: Findings of this examination were discussed with the patient as well as a family. She was advised to have a repeat scanning colonoscopy in 10 years..
[2022-03-20 14:24] VITALS: RESP 16
[2022-03-20 14:42] VITALS: BP 152/65; PULSE 85
== END 2022-03-20 15:12 | disposition home or self-care (01) ==
LOC: ORWHC2ENDO 11:10
PROVIDERS: ATTEND Internal Medicine Gastroenterology
DX: Z12.11 Encounter for screening for malignant neoplasm of colon (principal); F41.9 Anxiety disorder, unspecified; J40 Bronchitis, not specified as acute or chronic; E83.32 Hereditary vitamin D-dependent rickets (type 1) (type 2); E07.9 Disorder of thyroid, unspecified; Z87.19 Personal history of other diseases of the digestive system; M54.9 Dorsalgia, unspecified; Z79.890 Hormone replacement therapy; Z79.1 Long term (current) use of non-steroidal anti-inflammatories (NSAID); Z88.0 Allergy status to penicillin
CPT/HCPCS: 45378; J2704

== ENCOUNTER 2022-04-09 08:55 | Day surgery (SDC) | payer BC ==
[2022-04-09] MEDS ORDERED: ALPRAZolam 0.5 MG TAB PO PRN (09:05)
[2022-04-09 09:24] VITALS: TEMP 98
[2022-04-09 11:15] VITALS: BP 163/92; PULSE 65; RESP 14
--- NOTE | 2022-04-09 12:36 | US ---
EXAMINATION TYPE: US FNA thyroid first lesion DATE OF EXAM: 04/09/2022 COMPARISON: Ultrasound 02/03/2022 HISTORY: Thyroid nodule. Maximal barrier technique was utilized. After informed consent, skin overlying the right-sided isthm us thyroid nodule was localized with ultrasound and the overlying skin prepped and draped. Ultrasound was utilized using sterile technique. Lidocaine was used for local anesthesia. Five passes with a 2 5-gauge needle were made into the nodule and aspirated specimen was submitted to cytology. Following the procedure hemostasis achieved. No immediate complication. The patient discharged in stable con dition. IMPRESSION: STATUS POST ULTRASOUND GUIDED FINE NEEDLE ASPIRATION OF THYROID NODULE, PATHOLOGY IS PEND ING. THIS PROCEDURE WAS PERFORMED BY THE UNDERSIGNED.
== END 2022-04-09 11:00 | disposition home or self-care (01) ==
LOC: RADPROMAIN 08:55
PROVIDERS: ATTEND Family Medicine
DX: E04.1 Nontoxic single thyroid nodule (principal)
CPT/HCPCS: 10005; 88173; 88305

== ENCOUNTER → 2023-04-05 | Outpatient (CLI) | payer BC | END | disposition home or self-care (01) | LOC: RADMAMWWP 12:54 | PROVIDERS: ATTEND Obstetrics & Gynecology | DX: Z53.9 Procedure and treatment not carried out, unspecified reason (principal) ==

== ENCOUNTER → 2023-04-06 | Outpatient (CLI) | payer BC ==
--- NOTE | 2023-04-06 13:24 | MM ---
Reason for Exam: Clinical finding. Last mammogram was performed 2 year(s) and 7 month(s) ago. Patient History: Menarche at age 12. First Full-Term at age 21. Postmenopausal. Patient has history of breast feeding. Patient used Estrogen for 1 year. Patient used Hormonal Contraceptives for 7 years. Risk Values: Zhane 5 year model risk: 1.3%. NCI Lifetime model risk: 5.3%. Prior Study Comparison: 05/06/2001 Bilateral Screening Mammogram, [facility]. 04/03/2004 Bilateral Screening Mammogram, [facility]. 07/03/2014 Bilateral Screening Mammogram, [facility]. 08/24/2017 Bilateral Screening Mammogram, [facility]. 08/26/2017 Left Diagnostic Mammogram, [facility]. 04/19/2019 Bilateral Diagnostic Mammogram, [facility]. 08/29/2020 Bilateral Screening Mammogram, [facility]. Tissue Density: The breast tissue is heterogeneously dense. This may lower the sensitivity of mammography. Findings: Analyzed By CAD. No evidence of mass or distortion. Benign calcifications are stable. Overall Assessment: Benign, BI-RAD 2 Management: Screening Mammogram of both breasts in 1 year. . Results were given to the patient verbally at the time of exam. Patient should continue monthly self-breast exams. A clinical breast exam by your physician is recommended on an annual basis. This exam should not preclude additional follow-up of suspicious palpable abnormalities. Note on Zhane scores and lifetime risk: 1. A Zhane score greater than 3% is considered moderate risk. If this is the case, consider specialist referral to assess eligibility for a risk reducing agent. 2. If overall lifetime risk for the development of breast cancer is 20% or higher, the patient may qualify for future screening with alternating mammogram and breast MRI. Electronically signed and approved by: Joel Gamez M.D. Radiologis
== END | disposition home or self-care (01) ==
LOC: RADMAMWWP 12:56
PROVIDERS: ATTEND Obstetrics & Gynecology
DX: N63.10 Unspecified lump in the right breast, unspecified quadrant (principal); R92.333 Mammographic heterogeneous density, bilateral breasts; Z78.0 Asymptomatic menopausal state
CPT/HCPCS: 77062; 77066

== ENCOUNTER 2023-10-25 18:53 | Emergency (ER) | payer BC ==
[2023-10-25 19:17] VITALS: TEMP 97.8
--- NOTE | 2023-10-25 19:54 | ED ---
Chest Pain HPI - General Chief Complaint: Chest Pain Stated Complaint: Abd Pain Time Seen by Provider: 10/25/23 19:04 Source: patient Limitations: no limitations - History of Present Illness Initial Comments: Patient is a 63-year-old woman who presents to evaluation of chest pain. The patient stated that she had been feeling well in the morning but symptoms were vague. She and her went to the store and while riding in the car states that it felt like "my chest was caving in. She indicated the substernal area. She stated that then the pain went all along the costal margin. She stated that it was so uncomfortable she took her bra off. She also had associated nausea and vomiting. When she got home from the store she had diarrhea. She states that it was similar to what she experienced with her gallbladder but this was removed and 2020. Patient also had associated diaphoresis. MD Complaint: chest pain Onset/Timin -: hour(s) Onset: during rest Pain Location: substernal, left chest, right chest Pain Radiation: back Severity: severe Quality: other (Squeezing feeling) Consistency: now resolved Improves With: nothing Worsens With: nothing Anginal Symptoms: nausea, vomiting, diaphoresis Treatments Prior to Arrival: none - Related Data Home Medications Medication Instructions Recorded Confirmed Cetirizine HCl [Zyrtec] 10 mg PO DAILY 10/28/20 04/09/22 Cholecalciferol (Vitamin D3) 100 mcg PO DAILY 10/28/20 04/09/22 [Vitamin D3 (3000 Iu)] Levothyroxine Sodium [Synthroid] 137 mcg PO QAM 10/28/20 04/09/22 Co Q-10 (Unknown Dose) 1 tab PO DAILY 03/18/22 04/09/22 Ibuprofen/Diphenhydramine Cit 2 each PO HS 03/18/22 04/09/22 [Motrin Pm Caplet] Vitamin B-12 (Unknown Dose) 1 tab PO DAILY 03/18/22 04/09/22 Allergies Allergy/AdvReac Type Severity Reaction Status Date / Time Penicillins Allergy Anaphylaxis Verified 04/09/22 09:25 Review of Systems ROS Statement: Those systems with pertinent positive or pertinent negative responses have been documented in the HPI. ROS Other: All systems not noted in ROS Statement are negative. Constitutional: Denies: fever, chills Respiratory: Denies: cough, dyspnea Cardiovascular: Reports: chest pain. Denies: palpitations, orthopnea, edema, syncope Gastrointestinal: Reports: nausea, vomiting, diarrhea. Denies: abdominal pain, melena, hematochezia Genitourinary: Denies: dysuria, frequency, hematuria Musculoskeletal: Reports: back pain Skin: Denies: rash, lesions Neurological: Denies: headache, weakness, numbness EKG Findings - EKG Results: EKG: interpreted by ERMD, sinus rhythm (71 bpm), normal axis, normal QRS, normal ST/T, no acute changes - PR, Pacemaker, Normal: Normal tracing: normal tracing Past Medical History Past Medical History: Hyperlipidemia, Hypertension, Thyroid Disorder Additional Past Medical History / Comment(s): Gastric ulcer years ago, IBS years ago, chronic low back pain/DDD, vitamin D deficiency, bronchitis in past, UTI, sinus allergies, hypothyroid. History of Any Multi-Drug Resistant Organisms: None Reported Past Surgical History: Cholecystectomy Additional Past Surgical History / Comment(s): Laparoscopy for ovarian cystectomy, D&C hysteroscopy/ablation, colonoscopy, bilateral cataract removal/lens implants. Past Anesthesia/Blood Transfusion Reactions: Postoperative Nausea & Vomiting (PONV) Past Psychological History: Anxiety Past Alcohol Use History: Rare - Past Family History Father Family Medical History: Dementia, Diabetes Mellitus, Renal Disease Additional Family Medical History / Comment(s): Father is . He was on dialysis briefly. Mother Family Medical History: Congestive Heart Failure (CHF) Additional Family Medical History / Comment(s): Mother of CHF. Brother(s) Family Medical History: Cancer Additional Family Medical History / Comment(s): Non Hodgkins Lymphoma. General Exam Limitations: no limitations General appearance: alert, in no apparent distress Head exam: Present: atraumatic, normocephalic Eye exam: Present: normal appearance. Absent: scleral icterus, conjunctival injection ENT exam: Present: normal oropharynx Neck exam: Present: normal inspection Respiratory exam: Present: normal lung sounds bilaterally. Absent: respiratory distress, wheezes, rales, rhonchi, stridor Cardiovascular Exam: Present: regular rate, normal rhythm, normal heart sounds. Absent: systolic murmur, diastolic murmur, rubs, gallop GI/Abdominal exam: Present: soft. Absent: distended, tenderness, guarding, rebound, rigid, mass Extremities exam: Present: normal inspection, normal capillary refill. Absent: pedal edema, calf tenderness Back exam: Present: normal inspection. Absent: CVA tenderness (R), CVA tenderness (L) Neurological exam: Present: alert Skin exam: Present: warm, dry, intact, normal color. Absent: rash Course Vital Signs 10/25/23 10/25/23 10/25/23 18:59 20:49 22:20 Temperature 97.8 F Pulse Rate 85 78 77 Respiratory 40 H 18 18 Rate Blood Pressure 156/71 167/81 152/91 O2 Sat by Pulse 100 98 98 Oximetry Chest Pain MDM - [facility] Patient is a 63-year-old woman here with chest pain. The workup did reveal minimally elevated D-dimer and the patient had CT scan that was negative for pulmonary embolism or evidence of aortic aneurysm/dissection. The patient did have resolution of her pain immediately following the GI cocktail, and suspect symptoms are related to esophagus. Given the patient's age did recommend to have admission for telemetry monitoring, cardiology consultation, serial cardiac enzymes. The patient states that her symptoms are gone and she declines, she will follow with her physician. We discussed having the AST ALT rechecked. We discussed return parameters. The patient had chest x-ray that I interpreted as negative for acute infiltrate, pneumothorax, congestive heart failure The patient had CT scanning of the chest that I interpreted as negative for pulmonary embolism Was pt. sent in by a medical professional or institution ([facility], [employer], urgent care, hospital, or skilled nursing...) When possible be specific @ -[No] Did you speak to anyone other than the patient for history (EMS, parent, family, police, friend...)? What history was obtained from this source @ -[No] Did you review nursing and triage notes (agree or disagree)? Why? @ -[I reviewed and agree with nursing and triage notes] Were old charts reviewed (outside hosp., previous admission, EMS record, old EKG, old radiological studies, urgent care reports/EKG's, skilled nursing records)? Report findings @ -[No old charts were reviewed] Differential Diagnosis (chest pain, altered mental status, abdominal pain women, abdominal pain men, vaginal bleeding, weakness, fever, dyspnea, syncope, headache, dizziness, GI bleed, back pain, seizure, CVA, palpatations, mental health, musculoskeletal)? @ -[Differential Chest Pain: Stable Angina, Unstable Angina, STEMI, NSTEMI Aortic Dissection, Pneumothorax, Musculoskeletal, Esophageal Spasm GERD, Cholecystitis, Pancreatitis, Zoster, this is not meant to be an all-inclusive list. EKG interpreted by me (3pts min.). @ -[I interpreted as above] X-rays interpreted by me (1pt min.). @ -[I interpreted as above CT interpreted by me (1pt min.). @ -[I interpreted as above U/S interpreted by me (1pt. min.). @ -[None done] What testing was considered but not performed or refused? (CT, X-rays, U/S, labs)? Why? @ -[None] What meds were considered but not given or refused? Why? @ -[None] Did you discuss the management of the patient with other professionals (professionals i.e. , PA, [employer]ER, lab, RT, psych nurse, protective services social worker, compliance intern, teacher, radio electronics officer, correctional case records supervisor)? Give summary @ -[No] Was smoking cessation discussed for >3mins.? @ -[No] Was critical care preformed (if so, how long)? @ -[No] Were there social determinants of health that impacted care today? How? (Homelessness, low income, unemployed, alcoholism, drug addiction, transportation, low edu. Level, literacy, decrease access to med. care, long term, rehab)? @ -[No] Was there de-escalation of care discussed even if they declined (Discuss DNR or withdrawal of care, Hospice)? DNR status @ -[No] What co-morbidities impacted this encounter? (DM, HTN, Smoking, COPD, CAD, Cancer, CVA, ARF, Chemo, Hep., AIDS, mental health diagnosis, sleep apnea, morbid obesity)? @ -[Hypertension and hyperlipidemia Was patient admitted / discharged? Hospital course, mention meds given and route, prescriptions, significant lab abnormalities, going to OR and other pertinent info. @ -[See above Undiagnosed new problem with uncertain prognosis? @ -[No] Drug Therapy requiring intensive monitoring for toxicity (Heparin, Nitro, Insulin, Cardizem)? @ -[No] Were any procedures done? @ -[No] Diagnosis/symptom? @ -[Acute chest pain Elevated transaminase level Acute, or Chronic, or Acute on Chronic? @ -[Acute Uncomplicated (without systemic symptoms) or Complicated (systemic symptoms)? @ -[Uncomplicated Side effects of treatment? @ -[No] Exacerbation, Progression, or Severe Exacerbation? @ -[No] Poses a threat to life or bodily function? How? (Chest pain, [place], PR, pneumonia, PE, COPD, DKA, ARF, appy, cholecystitis, CVA, Diverticulitis, Homicidal, Suicidal, threat to staff... and all critical care pts) @ -[Yes there is risk associated with chest pain, the patient declined admission and will have close follow-up agreeing to return should symptoms recur or new symptoms develop Disposition Clinical Impression: Chest pain, Elevated transaminase level Disposition: HOME SELF-CARE Condition: Good Instructions (If sedation given, give patient instructions): Chest Pain (ED) Additional Instructions: As we discussed, have your liver tests rechecked in a week to ensure that they are not getting worse. Should any of your symptoms return, return to have evaluation. Is patient prescribed a controlled substance at d/c from ED?: No Referrals: Ermias Gordon DO [Primary Care Provider] - 1-2 days
[2023-10-25 20:20] LABS: Basophils % (A) 0 %; Eosinophils # (A) 0.1 k/uL (0-0.7); Eosinophils % (A) 1 %; HCT 40.6 % (34.0-46.0); HGB 13.2 gm/dL (11.4-16.0); Lymphocytes % (A) 14 %; MCH 28.9 pg (25.0-35.0); MCHC 32.6 g/dL (31.0-37.0); MCV 88.8 fL (80.0-100.0); Mean Platelet Volume 8.1; Monocytes # (A) 0.3 k/uL (0-1.0); Monocytes % (A) 4 %; Neutrophils % (A) 80 %; Platelet Count 159 k/uL (150-450); RBC 4.58 m/uL (3.80-5.40); RDW 12.8 % (11.5-15.5); WBC 7.5 k/uL (3.8-10.6)
[2023-10-25 20:33] LABS: Appearance,Urine Clear (Clear); Bilirubin,Urine Negative (Negative); Blood,Urine Negative (Negative); Color,Urine Colorless; Glucose,Urine (UA) Negative (Negative); Ketones,Urine Negative (Negative); Leukocyte Esterase,Urine Negative (Negative); Nitrite,Urine Negative (Negative); Protein,Urine Negative (Negative); Specific Gravity,Urine 1.017 (1.001-1.035); Urobilinogen,Urine <2.0 mg/dL (<2.0)
[2023-10-25 20:34] LABS: ALT 141 U/L (4-34); AST 243 U/L (14-36); African American GFR (CKD) 89 (>60 ml/min/1.73 sqM); Albumin 3.9 g/dL (3.5-5.0); Alkaline Phosphatase 116 U/L (38-126); Amylase 59 U/L (30-110); Anion Gap 5 mmol/L; Blood Urea Nitrogen 28 mg/dL (7-17); Carbon Dioxide 23 mmol/L (22-30); Chloride 110 mmol/L (98-107); Glucose 117 mg/dL (74-99); Lipase 135 U/L (23-300); Magnesium 1.9 mg/dL (1.6-2.3); Non-African American GFR(CKD) 77 (>60 ml/min/1.73 sqM); Potassium 4.1 mmol/L (3.5-5.1); Sodium 138 mmol/L (137-145); Total Bilirubin 1.1 mg/dL (0.2-1.3); Total Protein 6.6 g/dL (6.3-8.2)
[2023-10-25 20:39] LABS: INR 0.9 (<1.2)
--- NOTE | 2023-10-25 21:01 | XR ---
EXAMINATION TYPE: XR chest 2V DATE OF EXAM: 10/25/2023 8:23 PM CLINICAL INDICATION:Female, 63 years old with history of Chest Pain; [facility] COMPARISON: Chest radiographs from 10/28/2020 TECHNIQUE: XR chest 2V Frontal and lateral views of the chest. FINDINGS: Lungs/Pleura: There is no evidence of pleural effusion, focal consolidation, or pneumothorax. Pulmonary vascularity: Unremarkable. Heart/mediastinum: Cardiomediastinal silhouette is unremarkable. Musculoskeletal: No acute osseous pathology. IMPRESSION: No acute cardiopulmonary disease/process.
[2023-10-25 21:18] VITALS: RESP 18
[2023-10-25] MEDS: MAG HYDROX/AL HYDROX/SIMETH 30 ML, HYOSCYAMINE ELIXIR 10 ML, LIDOCAINE VISCOUS 2% 10 ML PO STA (21:26)
--- NOTE | 2023-10-25 21:35 | CT ---
EXAMINATION TYPE: CT chest angio for PE CT DLP: 456.2 mGycm, Automated exposure control for dose reduction was used. DATE OF EXAM: 10/25/2023 9:22 PM COMPARISON: Chest radiograph from same day. CLINICAL INDICATION:Female, 63 years old with history of chest pain, possible PE; pain, sob, elevated d dimer. TECHNIQUE/CONTRAST: CTA scan of the thorax is performed with IV Contrast, patient injected with 100ml mL of Isovue 370, M IP images are created and reviewed these are created on a separate workstation.. FINDINGS: Pulmonary Artery: There is no evidence for a central filling defect within the pulmonary vasculature to suggest acute pulmonary embolism. Limited evaluation of the segmental and subsegmental branches se condary to bolus timing. The pulmonary artery is of normal size. Lungs/Pleura: No evidence of focal consolidation, pleural effusion or pneumothorax. Airway: Large airways are patent. Heart: Heart is within normal limits for size. Vasculature: No evidence of aortic aneurysm. Mediastinum: No gross evidence of adenopathy. Musculoskeletal: Mild degenerative disc disease changes are present throughout the thoracolumbar spin e. Soft Tissues/lymph nodes: Unremarkable. Lower neck: No significant findings. Upper Abdomen: No significant findings. IMPRESSION: No evidence of central pulmonary embolism. Limited evaluation of the segmental and subsegmental branc hes.
[2023-10-25 22:45] VITALS: BP 152/91; PULSE 77
== END 2023-10-25 22:26 | disposition home or self-care (01) ==
LOC: EC 18:53
DX: R07.89 Other chest pain (principal); R74.01 Elevation of levels of liver transaminase levels; Z88.0 Allergy status to penicillin
CPT/HCPCS: 36415; 93005; 85379; 80053; 82150; 83690; 83735; 84484; 85025; 85610; 85730; 81003; 71046; 71275; 99285; Q9967

== ENCOUNTER 2023-11-26 15:32 | Observation (INO) | payer BC ==
--- NOTE | 2023-11-26 15:55 | ED ---
General Adult HPI - General Chief complaint: Extremity Injury, Lower Stated complaint: poss broken ankles Time Seen by Provider: 11/26/23 15:39 Source: patient, RN notes reviewed Mode of arrival: EMS Limitations: no limitations - History of Present Illness Initial comments: Patient is a pleasant 63-year-old female presenting to the emergency department with bilateral ankle injury. Patient was walking down a step. Patient did not realize there was a divot and fell forward. Patient hyperextended both ankles. Patient has discomfort in both ankles. Patient unable to ambulate. - Related Data Home Medications Medication Instructions Recorded Confirmed Cetirizine HCl [Zyrtec] 10 mg PO DAILY 10/28/20 04/09/22 Cholecalciferol (Vitamin D3) 100 mcg PO DAILY 10/28/20 04/09/22 [Vitamin D3 (3000 Iu)] Levothyroxine Sodium [Synthroid] 137 mcg PO QAM 10/28/20 04/09/22 Co Q-10 (Unknown Dose) 1 tab PO DAILY 03/18/22 04/09/22 Ibuprofen/Diphenhydramine Cit 2 each PO HS 03/18/22 04/09/22 [Motrin Pm Caplet] Vitamin B-12 (Unknown Dose) 1 tab PO DAILY 03/18/22 04/09/22 Allergies Allergy/AdvReac Type Severity Reaction Status Date / Time Penicillins Allergy Anaphylaxis Verified 11/26/23 15:42 Review of Systems ROS Statement: Those systems with pertinent positive or pertinent negative responses have been documented in the HPI. ROS Other: All systems not noted in ROS Statement are negative. Constitutional: Denies: fever Eyes: Denies: eye pain ENT: Denies: ear pain Respiratory: Denies: cough Cardiovascular: Denies: chest pain Endocrine: Denies: fatigue Gastrointestinal: Denies: abdominal pain Musculoskeletal: Reports: as per HPI Past Medical History Past Medical History: Hyperlipidemia, Hypertension, Thyroid Disorder Additional Past Medical History / Comment(s): Gastric ulcer years ago, IBS years ago, chronic low back pain/DDD, vitamin D deficiency, bronchitis in past, UTI, sinus allergies, hypothyroid. History of Any Multi-Drug Resistant Organisms: None Reported Past Surgical History: Cholecystectomy Additional Past Surgical History / Comment(s): Laparoscopy for ovarian cystectomy, D&C hysteroscopy/ablation, colonoscopy, bilateral cataract removal/lens implants. Past Anesthesia/Blood Transfusion Reactions: Postoperative Nausea & Vomiting (PONV) Past Psychological History: Anxiety Smoking Status: Never smoker Past Alcohol Use History: None Reported, Rare Past Drug Use History: None Reported - Past Family History Father Family Medical History: Dementia, Diabetes Mellitus, Renal Disease Additional Family Medical History / Comment(s): Father is . He was on dialysis briefly. Mother Family Medical History: Congestive Heart Failure (CHF) Additional Family Medical History / Comment(s): Mother of CHF. Brother(s) Family Medical History: Cancer Additional Family Medical History / Comment(s): Non Hodgkins Lymphoma. General Exam Limitations: no limitations General appearance: alert, in no apparent distress Head exam: Present: normocephalic Eye exam: Present: normal appearance Neck exam: Present: normal inspection. Absent: tenderness Respiratory exam: Present: normal lung sounds bilaterally Cardiovascular Exam: Present: regular rate, normal rhythm Expanded Peripheral pulses: 2+: Posterior Tibialis (R), Posterior Tibialis (L), Dorsalis Pedis (R), Dorsalis Pedis (L) GI/Abdominal exam: Present: soft. Absent: tenderness Extremities exam: Present: tenderness (Bilateral lateral greater than medial tenderness and swelling of the ankles. Distally the extremities are neurovascular intact.) Back exam: Present: normal inspection Neurological exam: Present: alert. Absent: motor sensory deficit Psychiatric exam: Present: normal affect, normal mood Skin exam: Present: normal color Course Vital Signs 11/26/23 15:39 Temperature 98.4 F Pulse Rate 70 Respiratory 20 Rate Blood Pressure 187/81 O2 Sat by Pulse 99 Oximetry Procedures - Orthopedic Splinting/Casting Injury #1 Side: right Lower Extremity Injury Location: short leg Lower Extremity Immobilizer: stirrup splint Injury #2 Side: left Lower Extremity Injury Location: short leg Lower Extremity Immobilizer: posterior splint Medical Decision Making - Medical Decision Making MDM back was pt. sent in by a medical professional or institution (, PA, NATURAL RESOURCES SPECIALIST, urgent care, hospital, or intermediate...) When possible be specific @ -No Did you speak to anyone other than the patient for history (EMS, parent, family, police, friend...)? What history was obtained from this source @ -No Did you review nursing and triage notes (agree or disagree)? Why? @ -I reviewed and agree with nursing and triage notes Were old charts reviewed (outside hosp., previous admission, EMS record, old EKG, old radiological studies, urgent care reports/EKG's, intermediate records)? Report findings @ -No old charts were reviewed Differential Diagnosis (chest pain, altered mental status, abdominal pain women, abdominal pain men, vaginal bleeding, weakness, fever, dyspnea, syncope, headache, dizziness, GI bleed, back pain, seizure, CVA, palpatations, mental h ealth, musculoskeletal)? @ -Differential Musculoskeletal Muscular strain, contusion, ligament sprain, fracture, arthritis, septic arthritis, bursitis, cellulitis, muscle spasm, nerve compression, DVT, arterial occlusion, herpes zoster, electrolyte abnormality, tumor.... This is not meant to be in all inclusive list EKG interpreted by me (3pts min.). @ -As above X-rays interpreted by me (1pt min.). @ -Bilateral ankle x-ray shows mild transverse fracture tip of the lateral malleolus. Right ankle shows oblique fracture distal fibular shaft with suspicion for tiny fracture of the tip of the medial malleolus. Also concern for fracture at the posterior malleolus. CT interpreted by me (1pt min.). @ -None done U/S interpreted by me (1pt. min.). @ -None done What testing was considered but not performed or refused? (CT, X-rays, U/S, labs)? Why? @ -None What meds were considered but not given or refused? Why? @ -None Did you discuss the management of the patient with other professionals (professionals i.e. , PA, NATURAL RESOURCES SPECIALIST, lab, RT, psych nurse, community mental health social worker, unhairing machine operator, teacher, planned giving officer, home health care case manager)? Give summary @ -Case discussed with Dr. Vizcaino who will admit covering orthopedic trauma Was smoking cessation discussed for >3mins.? @ -No Was critical care preformed (if so, how long)? @ -No Were there social determinants of health that impacted care today? How? (Homelessness, low income, unemployed, alcoholism, drug addiction, transportation, low edu. Level, literacy, decrease access to med. care, chcf, rehab)? @ -No Was there de-escalation of care discussed even if they declined (Discuss DNR or withdrawal of care, Hospice)? DNR status @ -No What co-morbidities impacted this encounter? (DM, HTN, Smoking, COPD, CAD, Cancer, CVA, ARF, Chemo, Hep., AIDS, mental health diagnosis, sleep apnea, morbid obesity)? @ -None Was patient admitted / discharged? Hospital course, mention meds given and route, prescriptions, significant lab abnormalities, going to OR and other pertinent info. @ -Patient presents following a fall with bilateral ankle fractures. Patient will be admitted for rehab. Admission orders written. Undiagnosed new problem with uncertain prognosis? @ -No Drug Therapy requiring intensive monitoring for toxicity (Heparin, Nitro, Insulin, Cardizem)? @ -No Were any procedures done? @ -See above, splint placed Diagnosis/symptom? @ -Lateral ankle fracture Acute, or Chronic, or Acute on Chronic? @ -Acute Uncomplicated (without systemic symptoms) or Complicated (systemic symptoms)? @ -Complicated with patient inability to ambulate Side effects of treatment? @ -No Exacerbation, Progression, or Severe Exacerbation? @ -No Poses a threat to life or bodily function? How? (Chest pain, [place], [place], pneumonia, PE, COPD, DKA, ARF, appy, cholecystitis, CVA, Diverticulitis, Homicidal, Suicidal, threat to staff... and all critical care pts) @ -No Disposition Clinical Impression: Bilateral ankle fractures Disposition: ADMITTED IP TO THIS HOSP Is patient prescribed a controlled substance at d/c from ED?: No Referrals: Ermias Gordon DO [Primary Care Provider] - 1-2 days Time of Disposition: 17:43
[2023-11-26] MEDS: HYDROmorphone 1 MG/ML 1 ML SYRINGE IM STA (16:08)
--- NOTE | 2023-11-26 17:39 | XR ---
EXAMINATION TYPE: XR ankle complete bilateral DATE OF EXAM: 11/26/2023 4:05 PM CLINICAL INDICATION:Female, 63 years old with history of fall; [facility] COMPARISON: None TECHNIQUE AND FINDINGS: 3 views each of the bilateral ankles. Osseous mineralization appears appropriate. No destructive bone lesion is seen. On the right there is acute oblique fracture of the distal fibular shaft located above the level of t he ankle mortise. Distal fragment is displaced laterally up to 3 mm. Tiny irregularity may suggest a fracture at the tip of the medial malleolus. Lateral view shows a minimally displaced fracture of the posterior malleolus. There may be mild widening of the lateral superolateral pleural space of the an kle. Ankle mortise is otherwise preserved. Talar dome looks to be intact. No other forefoot fracture identified. There is moderate soft tissue swelling about the ankle. Small joint effusion is suggested . No radiopaque foreign body. On the left, there is a mildly displaced transverse fracture near the tip of the lateral malleolus. A nkle mortise is preserved. Talar dome looks to be intact. There is moderate soft tissue swelling abou t the ankle. No radiopaque foreign body is seen. IMPRESSION: Right ankle: * Acute oblique fracture of the distal fibular shaft. * Tiny irregularity may suggest a fracture at the tip of the medial malleolus. * Fracture of the posterior malleolus. * Moderate soft tissue swelling about the ankle. Small joint effusion is suggested. No radiopaque fo reign body. Left ankle: * Mildly displaced transverse fracture near the tip of the lateral malleolus. * Moderate soft tissue swelling about the ankle. No radiopaque foreign body is seen.
[2023-11-26] MEDS ORDERED: ACETAMINOPHEN TAB 325 MG TAB PO PRN (17:43)
[2023-11-26] MEDS ORDERED: NALOXONE 0.4 MG/ML 1 ML VIAL IV PRN (17:43)
[2023-11-26 18:13] LABS: Basophils % (A) 0 %; Eosinophils # (A) 0.1 k/uL (0-0.7); Eosinophils % (A) 2 %; HCT 39.6 % (34.0-46.0); Lymphocytes # (A) 1.4 k/uL (1.0-4.8); Lymphocytes % (A) 23 %; MCH 28.8 pg (25.0-35.0); MCHC 32.9 g/dL (31.0-37.0); MCV 87.7 fL (80.0-100.0); Mean Platelet Volume 8.5; Monocytes # (A) 0.3 k/uL (0-1.0); Monocytes % (A) 4 %; Neutrophils # (A) 4.3 k/uL (1.3-7.7); Neutrophils % (A) 70 %; Platelet Count 153 k/uL (150-450); RBC 4.52 m/uL (3.80-5.40); RDW 12.8 % (11.5-15.5); WBC 6.2 k/uL (3.8-10.6)
[2023-11-26 18:37] LABS: African American GFR (CKD) >90 (>60 ml/min/1.73 sqM); Anion Gap 2 mmol/L; Blood Urea Nitrogen 23 mg/dL (7-17); Calcium 9.1 mg/dL (8.4-10.2); Carbon Dioxide 27 mmol/L (22-30); Chloride 107 mmol/L (98-107); Glucose 94 mg/dL (74-99); Non-African American GFR(CKD) >90 (>60 ml/min/1.73 sqM); Sodium 136 mmol/L (137-145)
[2023-11-26 18:41] LABS: Potassium 5.1 mmol/L (3.5-5.1)
--- NOTE | 2023-11-26 21:19 | P.HPOR ---
History of Present Illness H&P Date: 11/26/23 the patient is very pleasant relatively healthy 63-year-old female was admitted with bilateral ankle fractures. According to the patient earlier today she tripped on a step and fell injuring both of her ankles. She had immediate pain and was unable to ambulate. She was brought into the emergency department and admitted under my care after x-rays showed bilateral ankle fractures. The patient states that she lives with her but he is in his 80s and it is difficult for him to care for her. She is worried about discharging home and sits she will need rehab. Past Medical History Past Medical History: Hyperlipidemia, Hypertension, Thyroid Disorder Additional Past Medical History / Comment(s): Gastric ulcer years ago, IBS years ago, chronic low back pain/DDD, vitamin D deficiency, bronchitis in past, UTI, sinus allergies, hypothyroid. History of Any Multi-Drug Resistant Organisms: None Reported Past Surgical History: Cholecystectomy Additional Past Surgical History / Comment(s): Laparoscopy for ovarian cystectomy, D&C hysteroscopy/ablation, colonoscopy, bilateral cataract removal/lens implants. Past Anesthesia/Blood Transfusion Reactions: Postoperative Nausea & Vomiting (PONV) Past Psychological History: Anxiety Smoking Status: Never smoker Past Alcohol Use History: None Reported, Rare Past Drug Use History: None Reported - Past Family History Father Family Medical History: Dementia, Diabetes Mellitus, Renal Disease Additional Family Medical History / Comment(s): Father is . He was on dialysis briefly. Mother Family Medical History: Congestive Heart Failure (CHF) Additional Family Medical History / Comment(s): Mother of CHF. Brother(s) Family Medical History: Cancer Additional Family Medical History / Comment(s): Non Hodgkins Lymphoma. Medications and Allergies Home Medications Medication Instructions Recorded Confirmed Type Levothyroxine Sodium [Synthroid] 137 mcg PO DAILY 10/28/20 11/26/23 History Vitamin B-12 (Unknown Dose) 1 tab PO DAILY 03/18/22 11/26/23 History Cholecalciferol [Vitamin D3 (125 125 mcg PO Q2D 11/26/23 11/26/23 History Mcg = 5000 Iu)] Escitalopram [Lexapro] 10 mg PO DAILY 11/26/23 11/26/23 History Meloxicam [Mobic] 7.5 mg PO DAILY 11/26/23 11/26/23 History Valsartan 80 mg PO DAILY 11/26/23 11/26/23 History Allergies Allergy/AdvReac Type Severity Reaction Status Date / Time Penicillins Allergy Anaphylaxis Verified 11/26/23 18:02 Physical Examination the patient is resting comfortably in bed patches alert and able to answer quest ions. She dementia is not breathing with symmetric chest expansion. Her head is normocephalic and atraumatic. Both lower extremities are and short leg splint. Her toes are warm and well perfused with brisk capillary refill. Results x-rays of the right ankle show a minimally displaced Patel B lateral malleolus and posterior malleolus fracture. There is minimal widening of the medial clear space. X-rays of the left ankle so a small avulsion fracture over the tip of the fibula. - Labs Labs: Abnormal Lab Results - Last 24 Hours (Table) 11/26/23 Range/Units 18:04 Sodium 136 L (137-145) mmol/L BUN 23 H (7-17) mg/dL H & H 11/26/23 Range/Units 18:04 Hgb 13.0 (11.4-16.0) gm/dL Hct 39.6 (34.0-46.0) % Result Diagrams: 11/26/23 18:04 11/26/23 18:04 Assessment and Plan Assessment: bilateral ankle fractures Plan: I would recommend nonsurgical treatment on the left ankle with a tall walking boot. This can be ordered and hopefully delivered over the weekend. In regards to patient's right ankle she has minimally displaced fractures of the lateral and posterior malleolus. We discussed that treatment depends on stability. We discussed performing a stress in the office after discharge versus an exam under anesthesia in the operating room while she is an inpatient. If the ankle is unstable will require surgical fixation. If the ankle is stable she can placed in a boot. Due to the patient's of control circumstances she would like to have this stress exam on the hospital. We will plan for a stress exam under anesthesia tomorrow in the operating room and if the fracture is unstable proceeding with surgery as long as her swelling allows safe surgical dissection. She'll be nothing by mouth in anticipation for possible surgery tomorrow. Time with Patient: Greater than 30
[2023-11-26] MEDS: HYDROmorphone 1 MG/ML 1 ML SYRINGE IVP PRN (21:57)
[2023-11-27] MEDS: MELATONIN 5 MG TABLET PO SCH (02:38)
[2023-11-27] MEDS: LEVOTHYROXINE 137 MCG TAB PO SCH (06:35)
[2023-11-27] MEDS: IV FLUID CONTINUATION 1,000 ML IV ONE (09:34)
[2023-11-27] MEDS: LACTATED RINGERS 1,000 ML BAG IV STA (09:35)
[2023-11-27] MEDS: ONDANSETRON 4 MG/2 ML VIAL IVP PRN (09:52)
[2023-11-27] MEDS: DEXAMETHASONE SOD PHOSPHATE 4 MG/ML 1 ML VIAL IVP STA (09:53)
[2023-11-27] MEDS: SCOPOLAMINE 1 MG/72 HR PATCH TRANSDERM STA (09:54)
[2023-11-27] MEDS ORDERED: MIDAZOLAM 2 MG/2 ML VIAL ONE (10:12)
[2023-11-27] MEDS ORDERED: PROPOFOL 10 MG/ML 20 ML VIAL IV ONE (10:12)
--- NOTE | 2023-11-27 10:30 | P.OP ---
Date of Procedure: 11/27/23 Preoperative Diagnosis: right ankle fracture, lateral and posterior malleolus Postoperative Diagnosis: same Procedure(s) Performed: manual external rotation stress under anesthesia by physician for radiography, right ankle Anesthesia: MAC Surgeon: Christoph Vizcaino Pathology: none sent Condition: stable Disposition: PACU Indications for Procedure: is very pleasant 63-year-old female who sustained a fall resulting in bilateral ankle fractures. Her right ankle x-rays showed a minimally displaced fibula and posterior malleolus fracture. We discussed needing a stress x-ray to determine stability help guide treatment. Since the patient is admitted to the hospital for bilateral ankle fractures she requested proceeding while an inpatient so if it is unstable and require surgery we could perform her surgery prior to discharge. We discussed that a manual external rotation stress of the performed to determine stability. If the ankle is unstable would proceed with surgery. If the ankle was found to be stable she would be managed nonsurgically with a boot and serial x-rays. She provided consent to go forward with surgery. Operative Findings: External rotation stress x-rays of the right ankle showed no widening of the medial clear space or incisura. Description of Procedure: resident then holding and the correct right leg was marked my initials. I reviewed the consent form with the patient and all of her questions were answered. The patient was then brought back to the operating room by anesthesia. She was given sedation. A timeout was performed identifying the correct patient, operative extremity, and procedure. Once the patient was under anesthesia a gentle external rotation stress x-ray was performed. With gentle external rotation stress there was no widening of the medial clear space or incisura. I interpreted this as a stable ankle not requiring surgery. The patient was awoken from her anesthetic and brought to recovery having tolerated the procedure well. Plan: she can weight-bear as tolerated on both of her ankles. We'll place orders for bilateral tall cam boots. Due to her bilateral ankle fractures and difficulty ambulating she will likely need discharge to rehab. This is in progress.
[2023-11-27] MEDS: HYDROmorphone 0.5 MG/0.5 ML SYRINGE IVP PRN (10:43)
--- NOTE | 2023-11-27 13:24 | P.CONS ---
History of Present Illness - Reason for Consult Consult date: 11/27/23 Medical management - History of Present Illness History of present illness; patient is 63-year-old lady with past medical hi story significant for hyperlipidemia, hypertension, hypothyroidism who presented to the ER after a fall. Patient stated that she was walking down the stairs when she tripped and fell injuring her both her ankles. Patient started experiencing immediate pain and was unable to bear any weight on it. Patient was brought to the ER is found to have bilateral ankle fractures and was admitted to orthopedic service. Internal medicine team were consulted for medical management REVIEW OF SYSTEMS: CONSTITUTIONAL: No fever, no malaise, no fatigue. HEENT: No recent visual problems or hearing problems. Denied any sore throat. CARDIOVASCULAR: No chest pain, orthopnea, PND, no palpitations, no syncope. PULMONARY: No shortness of breath, no cough, no hemoptysis. GASTROINTESTINAL: No diarrhea, no nausea, no vomiting, no abdominal pain. NEUROLOGICAL: No headaches, no weakness, no numbness. HEMATOLOGICAL: Denies any bleeding or petechiae. GENITOURINARY: Denies any burning micturition, frequency, or urgency. MUSCULOSKELETAL/RHEUMATOLOGICAL: Complaining of pain in both ankles ENDOCRINE: Denies any polyuria or polydipsia. The rest of the 14-point review of systems is negative. PHYSICAL EXAMINATION: GENERAL: The patient is alert and oriented x3, not in any acute distress. Well developed, well nourished. HEENT: Pupils are round and equally reacting to light. EOMI. No scleral icterus. No conjunctival pallor. Normocephalic, atraumatic. No pharyngeal erythema. No thyromegaly. CARDIOVASCULAR: S1 and S2 present. No murmurs, rubs, or gallops. PULMONARY: Chest is clear to auscultation, no wheezing or crackles. ABDOMEN: Soft, nontender, nondistended, normoactive bowel sounds. No palpable organomegaly. MUSCULOSKELETAL: Right ankle brace seen EXTREMITIES: No cyanosis, clubbing, or pedal edema. NEUROLOGICAL: Gross neurological examination did not reveal any focal deficits. SKIN: No rashes. Assessment and plan Fall Bilateral ankle fractures Hypothyroidism Hypertension Monitor vital signs Monitor CBC Monitor CMP Continue pain management per orthopedics Continue DVT prophylaxis per orthopedics Continue Synthroid Continue valsartan PT and OT consulted Orthopedic following Labs and medication were reviewed.. Continue same treatment. Continue with symptomatic treatment. Resume home medication. Monitor labs and vitals. DVT and GI prophylaxis. Further recommendations as per clinical course of the patient Dictation was produced using [employer] dictation software. please excuse any grammatical, word or spelling errors. Past Medical History Past Medical History: Hyperlipidemia, Hypertension, Thyroid Disorder Additional Past Medical History / Comment(s): Gastric ulcer years ago, IBS years ago, chronic low back pain/DDD, vitamin D deficiency, bronchitis in past, UTI, sinus allergies, hypothyroid. History of Any Multi-Drug Resistant Organisms: None Reported Past Surgical History: Cholecystectomy Additional Past Surgical History / Comment(s): Laparoscopy for ovarian cystectomy, D&C hysteroscopy/ablation, colonoscopy, bilateral cataract removal/lens implants. Past Anesthesia/Blood Transfusion Reactions: Postoperative Nausea & Vomiting (PONV) Past Psychological History: Anxiety Additional Psychological History / Comment(s): Pt resides with her spouse. She is independent. Smoking Status: Never smoker Past Alcohol Use History: None Reported, Rare Past Drug Use History: None Reported - Past Family History Father Family Medical History: Dementia, Diabetes Mellitus, Renal Disease Additional Family Medical History / Comment(s): Father is . He was on dialysis briefly. Mother Family Medical History: Congestive Heart Failure (CHF) Additional Family Medical History / Comment(s): Mother of CHF. Brother(s) Family Medical History: Cancer Additional Family Medical History / Comment(s): Non Hodgkins Lymphoma. Medications and Allergies Home Medications Medication Instructions Recorded Confirmed Type Levothyroxine Sodium [Synthroid] 137 mcg PO DAILY 10/28/20 11/26/23 History Vitamin B-12 (Unknown Dose) 1 tab PO DAILY 03/18/22 11/26/23 History Cholecalciferol [Vitamin D3 (125 125 mcg PO Q2D 11/26/23 11/26/23 History Mcg = 5000 Iu)] Escitalopram [Lexapro] 10 mg PO DAILY 11/26/23 11/26/23 History Meloxicam [Mobic] 7.5 mg PO DAILY 11/26/23 11/26/23 History Valsartan 80 mg PO DAILY 11/26/23 11/26/23 History Allergies Allergy/AdvReac Type Severity Reaction Status Date / Time Penicillins Allergy Anaphylaxis Verified 11/26/23 18:02 Physical Exam Vitals: Vital Signs Temp Pulse Pulse Resp BP BP Pulse Ox 11/27/23 11:15 65 16 136/65 97 11/27/23 11:00 59 L 16 139/69 98 11/27/23 10:45 62 16 144/75 98 11/27/23 10:31 97.9 F 69 16 163/76 92 L 11/27/23 09:50 97.6 F 65 16 155/76 99 11/27/23 07:49 98.2 F 71 18 139/64 93 L 11/27/23 02:31 98.2 F 69 15 128/68 96 11/26/23 20:20 98.3 F 71 15 160/79 98 11/26/23 20:08 74 18 134/76 98 11/26/23 17:47 67 19 147/76 96 11/26/23 15:39 98.4 F 70 20 187/81 99 Intake and Output 11/26/23 11/27/23 11/27/23 22:59 06:59 14:59 Intake Total 400 Output Total 350 Balance -350 400 Intake: IV 400 Output: Urine 350 Other: Voiding Method External Catheter Weight 102.058 kg 102.058 kg Results CBC & Chem 7: 11/26/23 18:04 11/26/23 18:04 Labs: Abnormal Lab Results - Last 24 Hours (Table) 11/26/23 Range/Units 18:04 Sodium 136 L (137-145) mmol/L BUN 23 H (7-17) mg/dL
--- NOTE | 2023-11-27 15:22 | FL ---
EXAMINATION TYPE: FL guidance operating room, XR ankle limited RT Intraoperative/procedural fluorosco pic services were provided. Total fluoroscopy time is 4.8 seconds with a total of 6 submitted images to PACS. Please see the operative/procedural note for further details. DAP: 0.0747 Gycm2
[2023-11-27] MEDS: CYANOCOBALAMIN 500 MCG TAB PO SCH (15:50)
[2023-11-27] MEDS: MELOXICAM 7.5 MG TAB PO SCH (15:50)
[2023-11-27] MEDS: VALSARTAN 80 MG TAB PO SCH (16:00)
[2023-11-27] MEDS: ESCITALOPRAM 10 MG TAB PO SCH (16:00)
[2023-11-27] MEDS: traMADol 50 MG TAB PO PRN (20:53)
--- NOTE | 2023-11-28 09:09 | P.PN ---
Subjective Patient is doing better this morning. The pain in both of her ankles is improving. She still has concerns about ambulating given her bilateral ankle fractures. Objective - Vital Signs Vital signs: Vital Signs Temp 98.2 F 11/28/23 07:54 Pulse 70 11/28/23 07:54 Resp 18 11/28/23 07:54 BP 108/68 11/28/23 07:54 Pulse Ox 97 11/28/23 07:54 FiO2 Intake & Output 11/27/23 11/28/23 11/28/23 18:59 06:59 18:59 Intake Total 400 Output Total 550 Balance 400 -550 Intake: IV 400 Output: Urine 550 Other: Voiding Method External Catheter - Exam The patient is resting comfortably in bed. She is alert and able to answer questions. She has boots on both ankles. The tips of her toes are warm and well-perfused brisk capillary refill. - Labs CBC & Chem 7: 11/26/23 18:04 11/26/23 18:04 Assessment and Plan Assessment: Bilateral stable ankle fractures Plan: The patient can weight-bear as tolerated in boots on both ankles. Boots have been delivered. We will plan on a formal physical therapy evaluation tomorrow. The patient will likely need discharge to rehab given her bilateral ankle fractures.
[2023-11-28] MEDS: CHOLECALCIFEROL 125 MCG (5000 IU) TABLET PO SCH (10:24)
--- NOTE | 2023-11-28 12:48 | P.PN ---
Subjective Progress Note Date: 11/28/23 patient is 63-year-old lady with past medical history significant for hyperlipidemia, hypertension, hypothyroidism who presented to the ER after a fall. Patient stated that she was walking down the stairs when she tripped and fell injuring her both her ankles. Patient started experiencing immediate pain and was unable to bear any weight on it. Patient was brought to the ER is found to have bilateral ankle fractures and was admitted to orthopedic service. Internal medicine team were consulted for medical management 11/27. Patient seen and examined. Orthopedic following the patient cleared patient to have weight bearing as tolerated on both ankles with boots. States she only gets pain when she moves her feet. REVIEW OF SYSTEMS: CONSTITUTIONAL: No fever, no malaise,. CARDIOVASCULAR: No chest pain, no palpitations, no syncope. PULMONARY: No shortness of breath, no cough, GASTROINTESTINAL: No diarrhea, no nausea, no vomiting, no abdominal pain. NEUROLOGICAL: No headaches, no weakness, PHYSICAL EXAMINATION: GENERAL: The patient is alert and oriented x3, not in any acute distress. Well developed, well nourished. HEENT: Pupils are round and equally reacting to light. EOMI. No scleral icterus. No conjunctival pallor. Normocephalic, atraumatic. No pharyngeal erythema. No thyromegaly. CARDIOVASCULAR: S1 and S2 present. No murmurs, rubs, or gallops. PULMONARY: Chest is clear to auscultation, no wheezing or crackles. ABDOMEN: Soft, nontender, nondistended, normoactive bowel sounds. No palpable organomegaly. MUSCULOSKELETAL: No joint swelling or deformity. EXTREMITIES: No cyanosis, clubbing, or pedal edema. NEUROLOGICAL: Gross neurological examination did not reveal any focal deficits. SKIN: No rashes. Assessment and plan GENERAL: The patient is alert and oriented x3, not in any acute distress. Well developed, well nourished. HEENT: Pupils are round and equally reacting to light. EOMI. No scleral icterus. No conjunctival pallor. Normocephalic, atraumatic. No pharyngeal erythema. No thyromegaly. CARDIOVASCULAR: S1 and S2 present. No murmurs, rubs, or gallops. PULMONARY: Chest is clear to auscultation, no wheezing or crackles. ABDOMEN: Soft, nontender, nondistended, normoactive bowel sounds. No palpable organomegaly. MUSCULOSKELETAL: Bilateral ankle boots EXTREMITIES: No cyanosis, clubbing, or pedal edema. NEUROLOGICAL: Gross neurological examination did not reveal any focal deficits. SKIN: No rashes. Assessment and plan Fall Bilateral ankle fractures Hypothyroidism Hypertension Monitor vital signs Monitor CBC Monitor CMP Continue pain management per orthopedics Continue DVT prophylaxis per orthopedics Continue Synthroid Continue valsartan PT and OT consulted Orthopedic following Labs and medication were reviewed.. Continue same treatment. Continue with symptomatic treatment. Resume home medication. Monitor labs and vitals. DVT and GI prophylaxis. Further recommendations as per clinical course of the patient Dictation was produced using [employer] dictation software. please excuse any grammatical, word or spelling errors. Objective - Vital Signs Vital signs: Vital Signs Temp 98.2 F 11/28/23 07:54 Pulse 70 11/28/23 07:54 Resp 18 11/28/23 07:54 BP 108/68 11/28/23 07:54 Pulse Ox 97 11/28/23 07:54 FiO2 Intake & Output 11/27/23 11/28/23 11/28/23 18:59 06:59 18:59 Intake Total 400 Output Total 550 Balance 400 -550 Intake: IV 400 Output: Urine 550 Other: Voiding Method External Catheter - Labs CBC & Chem 7: 11/26/23 18:04 11/26/23 18:04
--- NOTE | 2023-11-29 10:46 | P.DS ---
Providers Date of admission: 11/26/23 17:43 Attending physician: Christoph Vizcaino Consults: 11/26/23 17:43 Consult Physician Routine Consulting Provider: Iwona Escudero Consult Reason/Comments: medical care Do you want consulting provider notified?: Yes Primary care physician: Ermias Gordon - Discharge Diagnosis(es) (1) Bilateral ankle fractures Current Visit: Yes Status: Acute Hospital Course: The patient is a 63-year-old female who was admitted with bilateral ankle fractures on 11/26/2023. On 11/27/23 they had manual external rotation stress under anesthesia by physician for radiography of the right ankle and the right ankle was determined to be stable. They have bilateral stable ankle fractures. Nonsurgical treatment was recommended at that time. Patient was placed in bilateral tall cam boots. Patient worked with PT and social work and plans were made for discharge. Plan - Discharge Summary New Discharge Prescriptions: New Aspirin 81 mg PO BID #60 tab HYDROcodone/APAP 5-325MG [[place] 5-325] 1 - 2 tab PO Q6HR PRN #32 tab PRN Reason: Pain Docusate [Colace] 100 mg PO BID #60 capsule No Action Levothyroxine Sodium [Synthroid] 137 mcg PO DAILY Meloxicam [Mobic] 7.5 mg PO DAILY Cholecalciferol [Vitamin D3 (125 Mcg = 5000 Iu)] 125 mcg PO Q2D Vitamin B-12 (Unknown Dose) 1 tab PO DAILY Valsartan 80 mg PO DAILY Escitalopram [Lexapro] 10 mg PO DAILY Cholestyramine (with Sugar) [Cholestyramine Packet] 4 gram PO PRN PRN Reason: Diarrhea Discharge Medication List Levothyroxine Sodium [Synthroid] 137 mcg PO DAILY 10/28/20 [History] Vitamin B-12 (Unknown Dose) 1 tab PO DAILY 03/18/22 [History] Cholecalciferol [Vitamin D3 (125 Mcg = 5000 Iu)] 125 mcg PO Q2D 11/26/23 [History] Escitalopram [Lexapro] 10 mg PO DAILY 11/26/23 [History] Meloxicam [Mobic] 7.5 mg PO DAILY 11/26/23 [History] Valsartan 80 mg PO DAILY 11/26/23 [History] Aspirin 81 mg PO BID #60 tab 11/28/23 [Rx] Cholestyramine (with Sugar) [Cholestyramine Packet] 4 gram PO PRN 11/28/23 [History] Docusate [Colace] 100 mg PO BID #60 capsule 11/28/23 [Rx] HYDROcodone/APAP 5-325MG [[place] 5-325] 1 - 2 tab PO Q6HR PRN #32 tab 11/28/23 [Rx] Follow up Appointment(s)/Referral(s): Ermias Gordon DO [Primary Care Provider] - 1-2 days Christoph Vizcaino MD [Medical Doctor] - 1 Week Thelma Esqueda [NON-STAFF] - As Needed (will deliver bilateral boots 11/27/23 at 2pm. any questions please call agency) Activity/Diet/Wound Care/Special Instructions: 1. Weight-bear as tolerated in boots on both legs. Use a walker or other assistive device to ambulate. It is okay to take the boot off when resting and for hygiene but when ambulating please wear your boot. 2. Leave surgical dressing in place. If your dressing becomes saturated with blood, there is drainage, or the dressing becomes loose please contact the office. 3. It is okay to shower 4. Make sure to take her blood clot prevention medication as prescribed (aspirin, Eliquis, Xarelto, and Plavix are commonly prescribed medications for blood clot prevention) 5. While taking [place] or Percocet for pain make sure you're taking a stool softener (Colace) and drink lots of water. 6. Keep all follow-up appointments as scheduled. 7. Please contact the office with any questions or concerns [phone] Discharge Disposition: TRANSFER TO SNF/ECF
[2023-11-29] MEDS: diphenhydrAMINE 25 MG CAP PO PRN (11:21)
--- NOTE | 2023-11-29 13:20 | P.PN ---
Subjective Progress Note Date: 11/29/23 patient is 63-year-old lady with past medical history significant for hyperlipidemia, hypertension, hypothyroidism who presented to the ER after a fall. Patient stated that she was walking down the stairs when she tripped and fell injuring her both her ankles. Patient started experiencing immediate pain and was unable to bear any weight on it. Patient was brought to the ER is found to have bilateral ankle fractures and was admitted to orthopedic service. Internal medicine team were consulted for medical management 11/27. Patient seen and examined. Orthopedic following the patient cleared patient to have weight bearing as tolerated on both ankles with boots. States she only gets pain when she moves her feet. 11/28. Patient seen and examined. No acute issues overnight. Vital signs stable REVIEW OF SYSTEMS: CONSTITUTIONAL: No fever, no malaise,. CARDIOVASCULAR: No chest pain, no palpitations, no syncope. PULMONARY: No shortness of breath, no cough, GASTROINTESTINAL: No diarrhea, no nausea, no vomiting, no abdominal pain. NEUROLOGICAL: No headaches, no weakness, PHYSICAL EXAMINATION: GENERAL: The patient is alert and oriented x3, not in any acute distress. Well developed, well nourished. HEENT: Pupils are round and equally reacting to light. EOMI. No scleral icterus. No conjunctival pallor. Normocephalic, atraumatic. No pharyngeal erythema. No thyromegaly. CARDIOVASCULAR: S1 and S2 present. No murmurs, rubs, or gallops. PULMONARY: Chest is clear to auscultation, no wheezing or crackles. ABDOMEN: Soft, nontender, nondistended, normoactive bowel sounds. No palpable organomegaly. MUSCULOSKELETAL: No joint swelling or deformity. EXTREMITIES: No cyanosis, clubbing, or pedal edema. NEUROLOGICAL: Gross neurological examination did not reveal any focal deficits. SKIN: No rashes. Assessment and plan GENERAL: The patient is alert and oriented x3, not in any acute distress. Well developed, well nourished. HEENT: Pupils are round and equally reacting to light. EOMI. No scleral icterus. No conjunctival pallor. Normocephalic, atraumatic. No pharyngeal erythema. No thyromegaly. CARDIOVASCULAR: S1 and S2 present. No murmurs, rubs, or gallops. PULMONARY: Chest is clear to auscultation, no wheezing or crackles. ABDOMEN: Soft, nontender, nondistended, normoactive bowel sounds. No palpable organomegaly. MUSCULOSKELETAL: Bilateral ankle boots EXTREMITIES: No cyanosis, clubbing, or pedal edema. NEUROLOGICAL: Gross neurological examination did not reveal any focal deficits. SKIN: No rashes. Assessment and plan Fall Bilateral ankle fractures Hypothyroidism Hypertension Monitor vital signs Monitor CBC Monitor CMP Continue pain management per orthopedics Continue DVT prophylaxis per orthopedics Continue Synthroid Continue valsartan PT and OT consulted Orthopedic following Labs and medication were reviewed.. Continue same treatment. Continue with symptomatic treatment. Resume home medication. Monitor labs and vitals. DVT and GI prophylaxis. Further recommendations as per clinical course of the patient Dictation was produced using [employer] dictation software. please excuse any grammatical, word or spelling errors. Objective - Vital Signs Vital signs: Vital Signs Temp 98.1 F 11/29/23 07:34 Pulse 62 11/29/23 07:34 Resp 16 11/29/23 07:34 BP 107/66 11/29/23 07:34 Pulse Ox 93 L 11/29/23 07:34 FiO2 Intake & Output 11/28/23 11/29/23 11/29/23 18:59 06:59 18:59 Intake Total 540 Output Total 525 Balance 15 Intake: Oral 540 Output: Urine 525 Other: # Voids 2 - Labs CBC & Chem 7: 11/26/23 18:04 11/26/23 18:04
[2023-11-29] MEDS: HYDROcodone/APAP 5-325MG 1 EACH TAB PO PRN (14:40)
[2023-11-29 15:04] VITALS: BP 101/64; PULSE 68; RESP 17; TEMP 98.2
== END 2023-11-29 15:56 ==
LOC: EC 15:32 → 4SSUR 17:43
PROVIDERS: ADMIT Orthopaedic Surgery; ATTEND Orthopaedic Surgery
DX: S82.891A Other fracture of right lower leg, initial encounter for closed fracture (principal); W10.9XXA Fall (on) (from) unspecified stairs and steps, initial encounter; Y93.01 Activity, walking, marching and hiking; E03.9 Hypothyroidism, unspecified; E78.5 Hyperlipidemia, unspecified; I10 Essential (primary) hypertension; Z96.1 Presence of intraocular lens; Z87.11 Personal history of peptic ulcer disease; Z83.3 Family history of diabetes mellitus; Z82.49 Family history of ischemic heart disease and other diseases of the circulatory system; Z80.7 Family history of other malignant neoplasms of lymphoid, hematopoietic and related tissues; Z79.899 Other long term (current) drug therapy; Z79.1 Long term (current) use of non-steroidal anti-inflammatories (NSAID)
CPT/HCPCS: 27810; 96365; 96366; 99285; 97162; 97166; 80048; 85025; 73610; 73600; G0378 ×4; J2250; J1100; J2405 ×3; J1170 ×5; J2704

== ENCOUNTER → 2024-05-10 | Outpatient (CLI) | payer MEDICARE ==
--- NOTE | 2024-05-11 08:16 | US ---
EXAMINATION TYPE: US carotid duplex BILAT DATE OF EXAM: 05/10/2024 COMPARISON: NONE CLINICAL INDICATION: Female, 63 years old with history of R55 Syncope and collapse; Syncope per order . hx hypertension Additional History: R55 Syncope TECHNIQUE: Grayscale, color Doppler and spectral Doppler evaluation of the bilateral carotid systems and vertebral arteries. Indirect Doppler criteria was utilized. FINDINGS: EXAM MEASUREMENTS: RIGHT: Peak Systolic Velocity (PSV) cm/sec ----- Right CCA: 70.3 ----- Right ICA: 86.0 ----- Right ECA: 76.1 ICA/CCA ratio: 1.22 RIGHT: End Diastole cm/sec ----- Right CCA: 16.3 ----- Right ICA: 24.9 ----- Right ECA: 10.5 LEFT: Peak Systolic Velocity (PSV) cm/sec ----- Left CCA: 74.8 ----- Left ICA: 103 ----- Left ECA: 238 ICA/CCA ratio: 1.38 LEFT: End Diastole cm/sec ----- Left CCA: 19.0 ----- Left ICA: 29.1 ----- Left ECA: 25.5 VERTEBRALS (direction of flow): Right Vertebral: Antegrade Left Vertebral: Antegrade Rhythm: Normal PST SUPERVISOR NOTES: Elevated velocity left ECA. Plaque seen within bilateral bulbs. *Left distal ICA appears tortuous/dives quickly posterior. Limited due to tortuosity. Color Doppler imaging shows patency with blood flow throughout the carotid artery. IMPRESSION: No evidence for hemodynamically significant stenosis. Criteria for Assigning % of Stenosis / Diameter reduction (Estimation based on the indirect measurements of the internal carotid artery velocities (ICA PSV). 1. Normal (no stenosis)=ICA PSV < 125 cm/s: ratio < 2.0: ICA EDV<40 cm/s. 2. Less than 50% stenosis=ICA PSV < 125 cm/s: ratio < 2.0: ICA EDV<40 cm/s. 3. 50 to 69% stenosis=ICA PSV of 125 to 230 cm/s: ration 2.0 ? 4.0: ICA EDV 40-100 cm/s. 4. Greater than 70% stenosis to near occlusion= ICA PSV > 230 cm/s: ratio > 4.0: ICA EDV > 100 cm/s. 5. Near occlusion= ICA PSV velocities may be low or undetectable: variable ratio and ICA EDV. 6. Total occlusion=unable to detect flow. [facility], , 05/11/2024 8:14 AM
== END | disposition home or self-care (01) ==
LOC: RADUSWWP 13:59
PROVIDERS: ATTEND Family Medicine
DX: I10 Essential (primary) hypertension (principal); R55 Syncope and collapse
CPT/HCPCS: 93880

== ENCOUNTER → 2024-06-05 | Day surgery (SDC) | payer MEDICARE ==
[2024-06-02 11:56] VITALS: BMI 34.9
[2024-06-05] MEDS: SODIUM CHLORIDE 0.9% 1,000 ML IV SCH (08:00)
[2024-06-05] MEDS: IV FLUID CONTINUATION 1,000 ML IV ONE (08:00)
[2024-06-05] MEDS: IV FLUID CONTINUATION 500 ML IV ONE (08:35)
[2024-06-05 10:26] VITALS: PULSE 69; RESP 16
[2024-06-05 10:33] VITALS: BP 171/86; TEMP 97.9
--- NOTE | 2024-06-06 14:59 | P.EPPROC ---
- EP Procedure Note Electrophysiology Procedure Note: Diagnosis Recurrent presyncope 12 EKG shows sinus rhythm normal PA narrow QRS normal ST segments normal QT interval Tilt table test per protocol Baseline blood pressure 163/80 mmHg baseline heart rate 61 beats a minute Patient was tilted upright at an angle of 70 degrees per protocol There was no significant change in heart rate or blood pressure no symptoms are noted The patient was laid down the end of the procedure Impression Normal twelve-lead EKG Normal heart rate and blood pressure response to upright tilting Elevated blood pressure readings noted throughout the test
== END ==
LOC: CATHEP 06:59
PROVIDERS: ATTEND Internal Medicine Clinical Cardiac Electrophysiology
DX: R55 Syncope and collapse (principal); R03.0 Elevated blood-pressure reading, without diagnosis of hypertension; I10 Essential (primary) hypertension; E78.2 Mixed hyperlipidemia; I34.0 Nonrheumatic mitral (valve) insufficiency; E03.9 Hypothyroidism, unspecified; Z79.890 Hormone replacement therapy; Z79.899 Other long term (current) drug therapy
CPT/HCPCS: 93660